=== PATIENT | male | born 1960 | race Caucasian/White ===

== ENCOUNTER 2024-02-22 08:50 | Inpatient (IN) | payer MEDICARE, SELFPAY ==
--- NOTE | ~2024-02-22 | CT_ITS ---
EXAMINATION: CT HEAD WITHOUT CONTRAST CLINICAL INFORMATION: Fall. Pain. COMPARISON: Previous head CT from 2008 TECHNIQUE: Contiguous axial imaging was performed from the skull base to vertex without intravenous administration of contrast. This CT examination was performed using dose optimization techniques as appropriate, variously including the following: *Automated exposure control *Adjustment of mA and/or kV according to patient size (this includes techniques or standardized protocols for targeted exams where dose is matched to indication/reason for exam; i.e. extremities or head) *Use of iterative reconstruction technique DLP: 822 mGy-cm FINDINGS: There is no extra-axial collection. There is no evidence of intra or extra-axial hemorrhage. The ventricles and extra-axial CSF spaces are slightly prominent suggestive of mild generalized atrophy. There is nonspecific periventricular white matter disease. No mass, mass effect or infarct. No skull fracture. Visualized sinuses mastoid air cells and middle ears are clear. There is poor dentition. CT/CT head/brain wo IV con IMPRESSION: No acute findings.
--- NOTE | ~2024-02-22 | XR_ITS ---
EXAMINATION: XR HIP, RIGHT CLINICAL INFORMATION: Right-sided pain COMPARISON: None available. TECHNIQUE: Two views of the right hip. FINDINGS: No fracture, dislocation or destructive process. Contrast is seen within the bladder. Patient had a CT abdomen and pelvis earlier today. XR/XR hip RT w [id number] IMPRESSION: Intact right hip.
--- NOTE | ~2024-02-22 | CT_ITS ---
Indication: Infection to upper back and scan EXAMINATION: Contrast enhanced CT of the chest abdomen pelvis. 85 mL Omnipaque 350. This CT examination was performed using dose optimization techniques as appropriate, variously including the following: *Automated exposure control *Adjustment of mA and/or kV according to patient size (this includes techniques or standardized protocols for targeted exams where dose is matched to indication/reason for exam; i.e. extremities or head) *Use of iterative reconstruction technique. Radiation dose is 633 Axial imaging with coronal and sagittal reformatted images. There are no previous studies to compare. CT chest; The the thoracic inlet is felt to be within normal limits. The axillary regions are unremarkable. Centrally there is no bulky adenopathy. Some coronary calcification is seen. The hilar regions are felt to be unremarkable. Imaging the lung vasquez. Right lung; Mild right lower lobe atelectasis. Dense 4 mm right upper lung nodule on image 165 likely represents a calcified granuloma. Some scattered areas of micronodular nodularity are noted. Scarring versus atelectasis anterior right upper lung. Other small calcified granulomas are noted. Some bronchial thickening is seen here. Left lung; Reticular nodular change in left upper lung anterior may be small or infiltrate. Small 3 mm nodule is seen on image 226 Mild basilar atelectasis. Bronchial thickening. Partially visualized abnormality involving the subcutaneous tissues centrally into the left of midline in the upper thoracic region. There is soft tissue change asymmetric to the contralateral side with surrounding stranding. Areas most significant on the topmost cut. Recommend CT superior to this to determine the extent of this abnormality. This may well be inflammatory. Malignancy of course could not be excluded. Upper abdomen; This exam is limited as there is artifact from the patient's extremities in the field. Heterogeneous appearance the liver is likely due to artifact. There is no defined lesion here.. The liver is mildly corrugated in appearance. Cirrhosis cannot be excluded. The spleen is within normal limits. The pancreas is unremarkable. Gallstone in the gallbladder is noted. The adrenal glands are unremarkable. The kidneys are in the early nephrographic phase. Again artifact limits evaluation. No gross finding. Bladder is within normal limits. The bowel pattern is felt to be nonobstructing. There is diverticular disease but no evidence for diverticulitis. The abdominal wall is felt to be intact. The appendix is within normal limits There is no bulky adenopathy in the abdomen pelvis. Some mildly prominent nodes in the portal region may be reactive. The vascular structures are intact. Minimal atherosclerotic changes. Review of the bone windows does not demonstrate suspicion for a bony lesion. CT/CT abdomen pelvis w IV con IMPRESSION: As described above chest exam only partially visualizes abnormality within the subcutaneous fat adjacent to the musculature of the midline to the left upper chest/lower neck region. I would recommend CT more superior to fully define the abnormality. Areas of conglomerate soft tissue change with soft tissue stranding. No air bubbles are identified.. Findings may well suggest an inflammatory and/or infectious etiology however underlying malignancy cannot be excluded correlation needs to be made clinically. Other findings are as described above some areas of atelectasis or reticular nodular change in the lungs which may be inflammatory. Some isolated small nodules are noted. Attention to follow-up per Fleischner criteria. No acute finding in the abdomen pelvis. Limitation from artifact
--- NOTE | ~2024-02-22 | CT_ITS ---
EXAMINATION: CT CERVICAL SPINE WITHOUT CONTRAST CLINICAL INFORMATION: Fall. Pain. COMPARISON: None available. TECHNIQUE: Axial images through the cervical spine without contrast. Sagittal and coronal reconstructions. This CT examination was performed using dose optimization techniques as appropriate, variously including the following: *Automated exposure control *Adjustment of mA and/or kV according to patient size (this includes techniques or standardized protocols for targeted exams where dose is matched to indication/reason for exam; i.e. extremities or head) *Use of iterative reconstruction technique DLP: 656 mGy-cm FINDINGS: Bone alignment is normal. No fracture or dislocation. Multilevel degenerative spondylosis and degenerative disc disease. Bilateral facet arthritis, right greater than left. Degenerative changes at the C1 dens articulation. Prevertebral soft tissues are normal. Lung apices are clear. CT/CT cervical spine wo IV con IMPRESSION: Degenerative changes. No fracture or dislocation. Fleischner guidelines were followed.
[2024-02-22 08:55] VITALS: BP 146/81; PULSE 105; RESP 18; TEMP 36.6; O2SAT 94; BMI 37.1
--- NOTE | 2024-02-22 09:06 | ED_ITS ---
HPI - General Adult General Chief complaint: Skin/Abscess/Foreign Body Stated complaint: Lump L shoulder Time Seen by Provider: 02/22/24 09:05 Source: patient and family (patient's ) Mode of arrival: ambulatory Limitations: no limitations History of Present Illness ED Provider: Genna Landon PA-C HPI narrative: 63-year-old male presents for evaluation of a lump on is left shoulder. He noticed a pimple on the back of his left shoulder about 10 days ago that he popped but it has been recurring and worsening since then. He states that the area has been continuously draining for several days and has become red and painful. His has been dressing it with triple antibiotic ointment and gauze without relief. Endorses feeling like may have had some fevers but has not taken his temperature. He denies chills, states he is sweaty at baseline. He also states that a few days after he noticed the pimple he started having a loss of appetite with some associated dry heaving and intermittent crampy RLQ abdominal pain, denies nausea. States the only thing he has had to eat in the last week is a Boost protein shake. Drinking plenty of fluids. Last bowel movement was about a week ago. MD complaint: R shoulder cellulitis Onset (ago): day(s) () Location: back Relieving factors: none Exacerbating factors: none Associated symptoms: fever/chills (subjective), loss of appetite and nausea/vomiting Treatments prior to arrival: other (antibiotic ointment) Related Data Home Medications ?Medication ?Instructions ?Recorded ?Confirmed acetaminophen 500 mg tablet 500 mg PO DAILY PRN Pain 02/22/24 02/22/24 diphenhydramine HCl 25 mg tablet 25 mg PO BEDTIME PRN itch/sleep 02/22/24 02/22/24 (Benadryl Allergy) famotidine 20 mg tablet 20 mg PO DAILY PRN Acid Reflux 02/22/24 02/22/24 ibuprofen 200 mg tablet 200 mg PO TIDAC 02/22/24 02/22/24 Allergies Allergy/AdvReac Type Severity Reaction Status Date / Time No Known Allergies Allergy Verified 02/22/24 09:00 Review of Systems 2 Constitutional: Constitutional: Reports no additional constitutional complaints, Denies chills, Reports fever(s) (subjective), Denies night sweats and Reports weight loss (due to lack of appetite) Eyes: Eyes: Reports no additional eye complaints, Denies blurry vision, Denies change in vision, Denies diplopia, Denies eye discharge, Denies loss of vision and Denies eye pain ENT: Denies dizziness Cardiovascular: Cardiovascular: Reports no additional cardiovascular complaints, Denies chest pain, Denies lightheadedness, Denies Loss of Consciousness and Denies dyspnea Respiratory: Respiratory: Reports no additional respiratory complaints and Denies dyspnea Gastrointestinal: Gastrointestinal: Reports no additional gastrointestinal complaints, Reports abdominal pain (intermittent, crampy, right lower abdomen), Denies melena, Denies hematochezia, Reports change in bowel habits (last bowel movement about a week ago (in setting of little/no intake)), Denies change in stool character, Reports nausea and Reports vomiting (dry heaving) Genitourinary: Genitourinary: Reports no additional male genitourinary complaints, Denies hematuria, Denies oliguria, Denies difficulty urinating, Denies dysuria, Denies urinary frequency, Denies urinary hesitancy, Denies urinary incontinence and Denies urinary urgency Musculoskeletal: Musculoskeletal: Reports no additional musculoskeletal complaints, Denies numbness and Denies tingling Integumentary/Breasts: Skin/Breast: Reports as per HPI Neurologic: Denies dizziness, Denies loss of vision, Denies numbness and Denies tingling Psychiatric: Psychiatric: Reports no additional psychiatric complaints Endocrine: Endocrine: Reports no additional endocrine complaints Hematologic/Lymphatic: Hematologic/Lymphatic: Reports no additional hematologic/lymphatic complaints Allergic/Immunologic: Allergic/Immunologic: Reports no additional allergic/immunologic complaints REPLACED BY [facility] Past Medical History Attestation statement: The following information was validated with the patient. (all information was validated with the patient's ) Source: old records reviewed, obtained from family (patient's provided additional history and confirmed the history provided by the patient) and nursing notes reviewed Medical History (Updated 02/22/24 @ 16:43 by FILI Wagner) Hypertension Family History Family History (Updated 02/22/24 @ 16:35 by FILI Ibanez) Father Diabetes Social History Social History Alcohol intake: current Alcohol intake frequency: holidays/special occasions only Smoked in Last 30 Days: No Use of substances other than those prescribed or required for medical reasons: No Any prior treatment program specific to substance use: No Advance Directives: No Advance Directives Information Provided: Yes Do you have a plan to hurt others: No Plan Physical Exam ED Vital Signs: Vital Signs - 24 hr 02/22/24 08:55 02/22/24 13:31 02/22/24 15:09 Temperature 98 F 98.7 F Pulse Rate 105 H 100 70 Respiratory Rate 18 21 H 15 Blood Pressure 146/81 H 154/88 H 130/60 Pulse Oximetry 94 99 Oxygen Delivery Method Room Air Room Air Room Air BMI result Body Mass Index 37.1 Const General: cooperative, no acute distress, alert and awake Nutritional Appearance: well nourished Orientation/consciousness: patient oriented x3 Limitations: no limitations HENMT Head: Yes normal to inspection and Yes atraumatic Ears: hearing grossly normal bilaterally and external ears normal General nose exam: Normal external nose present, no nasal discharge noted and no epistaxis Face and sinus: Yes normal facial exam, No abrasion and No laceration Mouth: Normal oral and palatal mucosa present, no drooling and no muffled voice Eyes General: appearance normal, both eyes and all related structures Periorbital: periorbital findings normal Eyelids: Yes eyelids normal Conjunctivae: conjunctivae normal Pupils: Equal, round and reactive pupils present EOM: EOMs intact bilaterally Neck Neck: Yes normal visual inspection, Yes full ROM and Yes no lymphadenopathy Chest Chest palpation & inspection: normal inspection of the chest Resp Effort & Inspection: normal respiratory effort and able to speak in complete sentences Auscultation: clear to auscultation bilaterally, no crackles, no rales, no rhonchi and no wheezes Cardio Rate: tachycardic Rhythm: regular rhythm Heart sounds: no click, no gallops, no murmurs and no rubs GI Inspection: Yes normal to inspection Back/Spine/Pelvis Other: Neuro General: patient oriented x3 and moves all extremities Cranial nerves: Yes Equal, round and reactive pupils present Cognition (Neuro): normal cognition Motor exam (neuro): 5/5 motor strength present throughout Sensory Exam: Normal double simultaneous stimulation for sensation Coordination: [id number] test normal Extrem General: Yes normal to inspection, Yes full ROM and Yes capillary refill normal Psych Appearance: grossly normal Mental Status: mental status grossly normal Affect: normal affect Attitude: cooperative Thought process: Normal thought process present Thought content: Normal thought content present Insight: Good insight present (Psych) Medications Administered Generic Name Dose Route Start Last Admin Trade Name Aline PRN Reason Stop Dose Admin Lactated Ringer's 1,000 mls @ 999 mls/hr 02/22/24 16:00 02/22/24 16:13 Lr IV 02/22/24 17:00 999 mls/hr .Q1H1M CEDRIC Administration Discontinued Medications Generic Name Dose Route Start Last Admin Trade Name Freq PRN Reason Stop Dose Admin Piperacillin Sod/Tazobactam 50 mls @ 100 mls/hr 02/22/24 09:51 02/22/24 11:19 Sod 3.375 gm/ Sodium Chloride IV 02/22/24 10:20 Infused ONCE ONE Infusion Sodium Chloride 1,000 mls @ 999 mls/hr 02/22/24 10:15 02/22/24 12:02 Ns IV 02/22/24 11:15 Infused .Q1H1M CEDRIC Infusion Vancomycin HCl 2,000 mg in 500 mls @ 250 mls/hr 02/22/24 12:00 02/22/24 14:45 Vancomycin/Ns IV 02/22/24 13:59 Infused ONCE ONE Infusion Insulin Human Regular 5 unit 02/22/24 15:46 02/22/24 16:12 Insulin Regular, Human 100 Unit/Ml 10 Ml Vial IVPUSH 02/22/24 15:47 5 unit ONCE ONE Administration Iohexol 85 ml 02/22/24 11:37 02/22/24 11:38 Iohexol 350 Mg/Ml 75 Ml Infus..Btl IV 02/22/24 11:38 85 ml ONCE ONE Administration Medical Decision Making Medical Decision Making MDM Narrative: Patient is a 63 year old assigned male at with no reported medical history presenting to the emergency department today with an upper back lesion. Patient's physical exam was as noted in the physical exam portion of this note. Patient's blood work showed an elevated WBC count of 14.3, an ESR of 83, a sodium of 129 (corrected is 133), an anion gap of 19, glucose of 360, CRP of 47.42, beta-hydroxybutyrate of 4.33, and an albumin of 2.8. Patient's CT chest and abdominal/pelvis showed evidence of a soft tissue infection in the upper back but no gas or other acute process. While in the department, the patient ambulated to the bathroom without incident. While in the bathroom, the patient fell and called for help. Patient denied any head strike or loss of conciousness with the incident but did cite right hip pain. I ordered a CT of the head and c- spine however, given the patient received IV contrast recently, we have to wait until it has been 6 hours to not have an interference in the reading of the CT head and c-spine. Patient's right hip and pelvis x-ray was negative. Patient's clinical presentation is not consistent with sepsis (@1524). Patient's clinical presentation is most consistent with new onset DM and an upper back subcutaneous infection vs. abscess vs. cellulitis. I spoke with the hospitalist team who agreed to admission but requested I consult with general surgery. I consulted with Dr. Mata who stated he was aware of the patient and to admit to medicine. Patient received IV Zosyn, IV Vancomycin, IV insulin, and 2 liters of fluid while in the department. I explained my physical exam findings as well as all test results to the patient and the patient's . I answered all questions asked by the patient and the patient's . Patient and the patient's verbalized agreement and understanding with this treatment plan and admission. Differential Diagnosis Differential Diagnoses: The differential diagnosis associated with the presentation includes Cellulitis Abscess Rash New onset DM Admission/Observation Consideration of admission/observation: Escalation of care including admission/observation considered Patient would have been admitted to the hospital had his work up had any findings where hospital admission was appropriate and his clinical presentation warranted hospital admission. Consult Healthcare Provider Management of the patient was discussed with: Hospitalist (agreed to admission as noted in the MDM Rationale portion of this note.) and Talent Development Coordinator (spoke to the surgeon as noted in the MDM Rationale portion of this note.) Lab Data [facility] Lab Attestation statement: I reviewed the patient's lab results. My interpretation of these results are in the MDM Rationale portion of this note. 02/22/24 10:17 02/22/24 10:59 Labs: Lab Results 02/22/24 02/22/24 02/22/24 Range/Units 10:17 10:59 12:34 WBC 14.3 H (4.8-10.8) X10*3/uL RBC 4.31 L (4.60-5.80) X10*6/uL Hgb 13.9 L (14.0-18.0) g/dl Hct 38.9 L (42.0-52.0) % MCV 90.3 (80.0-98.0) fL MCH 32.3 (27.0-33.0) pg MCHC 35.7 (31.0-36.0) g/dl RDW 12.2 (11.0-16.0) % Plt Count 262 (160-400) X10*3/uL MPV 9.8 (9.4-12.4) fL Immature Gran % (Auto) 1.3 H (0.0-0.4) % Neut % (Auto) 79.0 H (45-73) % Lymph % (Auto) 9.8 L (20-40) % Vigo % (Auto) 8.7 (2-11) % Eos % (Auto) 0.6 (0-4) % Baso % (Auto) 0.6 (0-2) % Lymph # (Auto) 1.4 (1.2-4.9) X10*3/uL Vigo # (Auto) 1.3 H (0.1-1.2) X10*3/uL Eos # (Auto) 0.1 (0.0-0.4) X10*3/uL Baso # (Auto) 0.1 (0.0-0.2) X10*3/uL Abs Immat Gran (auto) 0.18 H (0.00-0.03) X10*3/uL Absolute Neuts (auto) 11.3 H (2.0-8.3) x10*3/uL Absolute Nucleated RBC 0.000 (0.0-0.012) X10*3/uL Nucleated RBC % (auto) 0.0 (0.0-0.2) /100WBC ESR 83 H (0-15) MM/HR Sodium 129 L (135-145) mmol/L Potassium 3.7 (3.3-5.1) mmol/L Chloride 95 L (96-108) mmol/L Carbon Dioxide 19 L (22-29) mmol/L Anion Gap 19 (12-20) BUN 16 (9-16) mg/dL Creatinine 1.02 (0.5-1.4) mg/dL Estim Creat Clear Calc 98.2 Estimated GFR > 60 POC Glucose (60-115) mg/dL Random Glucose 360 H* (60-115) mg/dL Estimat Average Glucose Cancelled Hemoglobin A1c % Cancelled Lactic Acid 2.3 H* (0.5-2.0) mmol/L Lactic Acid F/U @ 2Hr 1.1 (0.5-2.0) mmol/L Calcium 9.2 (8.4-10.2) mg/dL Total Bilirubin 0.6 (0.0-1.0) mg/dL AST 24 (5-37) U/L ALT 27 (0-40) U/L Alkaline Phosphatase 99 (39-117) U/L C-Reactive Protein 47.42 H (< or = 0.50) mg/dL Total Protein 7.2 (6.5-8.0) g/dL Albumin 2.8 L (3.5-5.0) g/dL Beta-Hydroxybutyrate 4.33 H (0.02-0.27) mmol/L 02/22/24 Range/Units 15:44 WBC (4.8-10.8) X10*3/uL RBC (4.60-5.80) X10*6/uL Hgb (14.0-18.0) g/dl Hct (42.0-52.0) % MCV (80.0-98.0) fL MCH (27.0-33.0) pg MCHC (31.0-36.0) g/dl RDW (11.0-16.0) % Plt Count (160-400) X10*3/uL MPV (9.4-12.4) fL Immature Gran % (Auto) (0.0-0.4) % Neut % (Auto) (45-73) % Lymph % (Auto) (20-40) % Vigo % (Auto) (2-11) % Eos % (Auto) (0-4) % Baso % (Auto) (0-2) % Lymph # (Auto) (1.2-4.9) X10*3/uL Vigo # (Auto) (0.1-1.2) X10*3/uL Eos # (Auto) (0.0-0.4) X10*3/uL Baso # (Auto) (0.0-0.2) X10*3/uL Abs Immat Gran (auto) (0.00-0.03) X10*3/uL Absolute Neuts (auto) (2.0-8.3) x10*3/uL Absolute Nucleated RBC (0.0-0.012) X10*3/uL Nucleated RBC % (auto) (0.0-0.2) /100WBC ESR (0-15) MM/HR Sodium (135-145) mmol/L Potassium (3.3-5.1) mmol/L Chloride (96-108) mmol/L Carbon Dioxide (22-29) mmol/L Anion Gap (12-20) BUN (9-16) mg/dL Creatinine (0.5-1.4) mg/dL Estim Creat Clear Calc Estimated GFR POC Glucose 317 H (60-115) mg/dL Random Glucose (60-115) mg/dL Estimat Average Glucose Hemoglobin A1c % Lactic Acid (0.5-2.0) mmol/L Lactic Acid F/U @ 2Hr (0.5-2.0) mmol/L Calcium (8.4-10.2) mg/dL Total Bilirubin (0.0-1.0) mg/dL AST (5-37) U/L ALT (0-40) U/L Alkaline Phosphatase (39-117) U/L C-Reactive Protein (< or = 0.50) mg/dL Total Protein (6.5-8.0) g/dL Albumin (3.5-5.0) g/dL Beta-Hydroxybutyrate (0.02-0.27) mmol/L Independent Interpretation I performed an independent interpretation of an: Plain X-Ray Interpretation: My interpretation is in agreement with the radiologist's impression of these imaging studies. - EXAMINATION: Contrast enhanced CT of the chest abdomen pelvis. 85 mL Omnipaque 350. This CT examination was performed using dose optimization techniques as appropriate, variously including the following: *Automated exposure control *Adjustment of mA and/or kV according to patient size (this includes techniques or standardized protocols for targeted exams where dose is matched to indication/reason for exam; i.e. extremities or head) *Use of iterative reconstruction technique. Radiation dose is 633 Axial imaging with coronal and sagittal reformatted images. There are no previous studies to compare. CT chest; The the thoracic inlet is felt to be within normal limits. The axillary regions are unremarkable. Centrally there is no bulky adenopathy. Some coronary calcification is seen. The hilar regions are felt to be unremarkable. Imaging the lung vasquez. Right lung; Mild right lower lobe atelectasis. Dense 4 mm right upper lung nodule on image 165 likely represents a calcified granuloma. Some scattered areas of micronodular nodularity are noted. Scarring versus atelectasis anterior right upper lung. Other small calcified granulomas are noted. Some bronchial thickening is seen here. Left lung; Reticular nodular change in left upper lung anterior may be small or infiltrate. Small 3 mm nodule is seen on image 226 Mild basilar atelectasis. Bronchial thickening. Partially visualized abnormality involving the subcutaneous tissues centrally into the left of midline in the upper thoracic region. There is soft tissue change asymmetric to the contralateral side with surrounding stranding. Areas most significant on the topmost cut. Recommend CT superior to this to determine the extent of this abnormality. This may well be inflammatory. Malignancy of course could not be excluded. Upper abdomen; This exam is limited as there is artifact from the patient's extremities in the field. Heterogeneous appearance the liver is likely due to artifact. There is no defined lesion here.. The liver is mildly corrugated in appearance. Cirrhosis cannot be excluded. The spleen is within normal limits. The pancreas is unremarkable. Gallstone in the gallbladder is noted. The adrenal glands are unremarkable. The kidneys are in the early nephrographic phase. Again artifact limits evaluation. No gross finding. Bladder is within normal limits. The bowel pattern is felt to be nonobstructing. There is diverticular disease but no evidence for diverticulitis. The abdominal wall is felt to be intact. The appendix is within normal limits There is no bulky adenopathy in the abdomen pelvis. Some mildly prominent nodes in the portal region may be reactive. The vascular structures are intact. Minimal atherosclerotic changes. Review of the bone windows does not demonstrate suspicion for a bony lesion. CT/CT abdomen pelvis w IV con IMPRESSION: As described above chest exam only partially visualizes abnormality within the subcutaneous fat adjacent to the musculature of the midline to the left upper chest/lower neck region. I would recommend CT more superior to fully define the abnormality. Areas of conglomerate soft tissue change with soft tissue stranding. No air bubbles are identified.. Findings may well suggest an inflammatory and/or infectious etiology however underlying malignancy cannot be excluded correlation needs to be made clinically. Other findings are as described above some areas of atelectasis or reticular nodular change in the lungs which may be inflammatory. Some isolated small nodules are noted. Attention to follow-up per Fleischner criteria. No acute finding in the abdomen pelvis. Limitation from artifact Dictated By: Magdy Whitlock MD Signed By: Electronically signed by Magdy Whitlock MD 02/22/24 1509 - EXAMINATION: XR HIP, RIGHT CLINICAL INFORMATION: Right-sided pain COMPARISON: None available. TECHNIQUE: Two views of the right hip. FINDINGS: No fracture, dislocation or destructive process. Contrast is seen within the bladder. Patient had a CT abdomen and pelvis earlier today. XR/XR hip RT w [id number] IMPRESSION: Intact right hip. Dictated By: Bernardo Hinton MD Signed By: Electronically signed by Bernardo Hinton MD 02/22/24 1447 Radiology Impression Discussion of test interpretation with radiology: I have reviewed the radiologist's reading. Independent Historian Clinical information obtained from an independent historian. History obtained from or confirmed by: Spouse (patient's provided additional history and confirmed the history provided by the patient.) Critical Care Time Critical Care Time Critical Care Time: Yes Total Critical Care Time: 48 Attestation: I spent 48 minutes of Critical Care Time with this patient. This does not include time spent on separately reported billable procedures. Discharge Plan Discharge Clinical Impression: Cellulitis, Abscess, Diabetes mellitus, new onset, Acute hyperglycemia Patient Disposition: Admitted As Inpatient Prescriptions: No Action acetaminophen [Tylenol Ex Str Arthritis Pain] 500 mg Tablet 500 mg PO DAILY PRN (Reason: Pain) famotidine 20 mg Tablet 20 mg PO DAILY PRN (Reason: Acid Reflux) diphenhydramine HCl [Benadryl Allergy] 25 mg Tablet 25 mg PO BEDTIME PRN (Reason: itch/sleep) ibuprofen 200 mg Tablet 200 mg PO TIDAC Print Language: Yoruba
[2024-02-22 10:24] LABS: MANUAL DIFF FLAG NO
[2024-02-22 10:30] LABS: Basophils Absolute Auto 0.1 X10*3/uL (0.0-0.2); Basophils Percent Auto 0.6 % (0-2); Eosinophils Absolute Auto 0.1 X10*3/uL (0.0-0.4); Eosinophils Percent Auto 0.6 % (0-4); Hematocrit 38.9 % (42.0-52.0); Hemoglobin 13.9 g/dl (14.0-18.0); Imm Gran Abs Auto 0.18 X10*3/uL (0.00-0.03); Imm Gran Pct Auto 1.3 % (0.0-0.4); Lymphocytes Absolute Auto 1.4 X10*3/uL (1.2-4.9); Lymphocytes Percent Auto 9.8 % (20-40); Mean Corpuscular HGB Conc 35.7 g/dl (31.0-36.0); Mean Corpuscular Hemoglobin 32.3 pg (27.0-33.0); Mean Corpuscular Volume 90.3 fL (80.0-98.0); Mean Platelet Volume 9.8 fL (9.4-12.4); Monocytes Absolute Auto 1.3 X10*3/uL (0.1-1.2); Monocytes Percent Auto 8.7 % (2-11); Neutrophils Absolute Auto 11.3 x10*3/uL (2.0-8.3); Platelet Count 262 X10*3/uL (160-400); Red Blood Count 4.31 X10*6/uL (4.60-5.80); Red Cell Distribution Width 12.2 % (11.0-16.0); White Blood Count 14.3 X10*3/uL (4.8-10.8)
[2024-02-22] MEDS: Piperacillin Sodium/Tazobactam 3.375 GM in 0.9 % Sodium Chloride 50 ML IV ×3 (10:33→21:52)
[2024-02-22] MEDS: 0.9 % Sodium Chloride 1,000 ML 999 ML IV (10:33)
[2024-02-22 10:53] LABS: Lactic Acid 2.3 mmol/L (0.5-2.0)
[2024-02-22 11:03] LABS: Erythrocyte Sedimentation Rate 83 MM/HR (0-15)
[2024-02-22 11:22] LABS: Alanine Aminotransferase 27 U/L (0-40); Albumin Level 2.8 g/dL (3.5-5.0); Alkaline Phosphatase 99 U/L (39-117); Anion Gap 19 (12-20); Aspartate Amino Transferase 24 U/L (5-37); Bilirubin Total 0.6 mg/dL (0.0-1.0); Blood Urea Nitrogen 16 mg/dL (9-16); C Reactive Protein 47.42 mg/dL (< or = 0.50); Calcium 9.2 mg/dL (8.4-10.2); Carbon Dioxide 19 mmol/L (22-29); Chloride 95 mmol/L (96-108); Creatinine Clr Calc Pharmacy 98.2; Estimated Glomerular Filt Rate > 60; Glucose Random 360 mg/dL (60-115); Potassium 3.7 mmol/L (3.3-5.1); Sodium 129 mmol/L (135-145); Total Protein 7.2 g/dL (6.5-8.0)
[2024-02-22] MEDS: iohexoL 350 MG/ML 75 ML INFUS..BTL 85 ML IV (11:38)
[2024-02-22] MEDS: vancomycin/NS 2,000 MG/500 ML PLAST..BAG 250 MG IV (12:02)
[2024-02-22 12:08] LABS: Beta-Hydroxybutyrate 4.33 mmol/L (0.02-0.27)
[2024-02-22 12:23] LABS: Reflex Lactate? Lactic Acid Added
[2024-02-22 12:48] LABS: ~Lactic Acid-LAB USE ONLY 1.1 mmol/L (0.5-2.0)
[2024-02-22 13:31] VITALS: BP 154/88; PULSE 100; RESP 21; O2SAT 99
--- NOTE | 2024-02-22 13:31 | PC.NURSE ---
assumed care of pt at 1300 pt requested to go to the restroom, disconnected from IV, pt assisted to standing, shoes in place, ambulated independently w a slow steady gait to the restroom. pt heard calling for help from the bathroom, security called to unlock door. pt found lying on floor, sat up into sitting position, endorsing R hip pain, -ve head strike, unwitnessed, provider aware. pt assisted into wheel chair and back into bed, reporting improvement in hip pain after getting off hard concrete. pt reports that he stood up from the toilet and tripped and fell onto my right side. post fall vitals: hypertensive, otherwise WNL. Initialized on 02/22/24 13:31 - END OF NOTE
--- NOTE | 2024-02-22 13:31 | PC.NURSE ---
Addendum entered by Aubrey Quigley 02/22/24 15:16: assumed care of pt at 1500. Original Note: pt requested to go to the restroom, disconnected from IV, pt assisted to standing, shoes in place, ambulated independently w a slow steady gait to the restroom. pt heard calling for help from the bathroom, security called to unlock door. pt found lying on floor, sat up into sitting position, endorsing R hip pain, -ve head strike, unwitnessed, provider aware. pt assisted into wheel chair and back into bed, reporting improvement in hip pain after getting off hard concrete. pt reports that he stood up from the toilet and tripped and fell onto my right side. post fall vitals: hypertensive, otherwise WNL.
[2024-02-22 15:09] VITALS: BP 130/60; PULSE 70; RESP 15; TEMP 37.1
--- NOTE | 2024-02-22 15:46 | PHA.MEDREC ---
Pharmacy Consult ? Medication Reconciliation Pharmacy has completed the medication reconciliation. Completed medication lest with patient. Patient mostly taking OTC meds, he takes Ibuprofen 200mg typically TID before meals but due to him not eating recently he hasn't taken it in about 2-3 days per patient.
[2024-02-22 15:48] LABS: Glucose, Whole Blood 317 mg/dL (60-115)
[2024-02-22] MEDS: Insulin Regular, Human 100 UNIT/ML 10 ML VIAL IVPUSH (16:12)
[2024-02-22] MEDS: Lactated Ringers 1,000 ML 999 ML IV (16:13)
--- NOTE | 2024-02-22 16:28 | PM.IMHP ---
History of Present Illness Date of Service: 02/22/24 Attending physician on admission: Florencio Arndt Chief Complaint: back abscess This is a 63-year-old male who presents to the emergency department with complaints of left back abscess. He states approximately 10 days ago he noticed a pimple which she has popped multiple times. This area has continued to grow considerably and has been actively draining for the past 2 days. It has become red and painful and today he presented to the emergency department for evaluation of this area. He reports decreased p.o. intake for the past 4 days but denies excessive thirst or associated fever or chills. On evaluation he was afebrile, lab work was significant for leukocytosis of 14.3. Inflammatory markers including ESR and CRP were significantly elevated. In addition he was noted to have hyperglycemia. He denies any previous diagnosis of diabetes. He has not seen any medical provider in at least the past 4-5 years. Lactic acid was slightly elevated at 2.1, bicarb low 19 but no evidence of DKA, no anion gap. Imaging studies partially visualized abnormality in the subcutaneous fat adjacent to the musculature in the lower neck region suggestive of inflammatory and/or infectious etiology. He received broad-spectrum antibiotics and the decision was made to admit him to the hospital for further management. While he was in the emergency department he did have a mechanical fall. He did not lose consciousness and he denies hitting his head. He denies any headache, visual disturbances or neck pain. A right hip x-ray was obtained and was negative for any fracture. He denies any pain right hip or pelvis. Review of Systems Review of Systems: Yes all other systems are reviewed and are negative Constitutional: Constitutional: Denies chills and Denies fever(s) ENT: Denies dizziness Cardiovascular: Cardiovascular: Denies chest pain Neurologic: Denies dizziness [facility] Medical History (Updated 02/22/24 @ 16:43 by FILI Wagner) Hypertension Family History (Updated 02/22/24 @ 16:35 by FILI Ibanez) Father Diabetes Social History Alcohol intake: current Alcohol intake frequency: holidays/special occasions only Smoked in Last 30 Days: No Use of substances other than those prescribed or required for medical reasons: No Any prior treatment program specific to substance use: No Advance Directives: No Advance Directives Information Provided: Yes Do you have a plan to hurt others: No Plan Meds Allergies Allergy/AdvReac Type Severity Reaction Status Date / Time No Known Allergies Allergy Verified 02/22/24 09:00 Active Medications: Current Medications Lactated Ringer's (Lr) 1,000 mls @ 999 mls/hr IV .Q1H1M CEDRIC Stop: 02/22/24 17:00 Last Admin: 02/22/24 16:13 Dose: 999 mls/hr Home Medications ?Medication ?Instructions ?Recorded ?Confirmed ?Last Taken ?Type acetaminophen 500 mg tablet 500 mg PO DAILY PRN Pain 02/22/24 02/22/24 Unknown History diphenhydramine HCl 25 mg tablet 25 mg PO BEDTIME PRN itch/sleep 02/22/24 02/22/24 Unknown History (Benadryl Allergy) famotidine 20 mg tablet 20 mg PO DAILY PRN Acid Reflux 02/22/24 02/22/24 Unknown History ibuprofen 200 mg tablet 200 mg PO TIDAC 02/22/24 02/22/24 02/20/24 History Physical Exam Vital Signs and Narrative: Vital Signs: Last Vital Signs Temp 98.7 F 02/22/24 15:09 Pulse 70 02/22/24 15:09 Resp 15 02/22/24 15:09 BP 130/60 02/22/24 15:09 Pulse Ox 99 02/22/24 13:31 O2 Del Method Room Air 02/22/24 15:09 BMI result Body Mass Index 37.1 Const: General: cooperative, no acute distress, alert and awake Nutritional Appearance: obese Orientation/consciousness: patient oriented x3 Resp: Effort & Inspection: normal respiratory effort, able to speak in complete sentences, no respiratory distress and no use of accessory muscles Cardio: Rate: regular rate GI: Inspection: No distended and Yes obesity Palpation (GI): Soft to palpation and nontender Skin: Other: back abscess with large area of cellulitis/erythema, tender, with purulent drainage Neuro: General: patient oriented x3, moves all extremities and CN's II-XI intact bilaterally Results Labs 02/22/24 10:17 02/22/24 10:59 Labs: Laboratory Results - last 24 hr 02/22/24 02/22/24 02/22/24 10:17 10:59 12:34 MCV 90.3 MCH 32.3 MCHC 35.7 RDW 12.2 Plt Count 262 MPV 9.8 Immature Gran % (Auto) 1.3 H Neut % (Auto) 79.0 H Lymph % (Auto) 9.8 L [place] % (Auto) 8.7 Eos % (Auto) 0.6 Baso % (Auto) 0.6 Lymph # (Auto) 1.4 [place] # (Auto) 1.3 H Eos # (Auto) 0.1 Baso # (Auto) 0.1 Abs Immat Gran (auto) 0.18 H Absolute Neuts (auto) 11.3 H Absolute Nucleated RBC 0.000 Nucleated RBC % (auto) 0.0 ESR 83 H Anion Gap 19 Estim Creat Clear Calc 98.2 Estimated GFR > 60 POC Glucose Random Glucose 360 H* Estimat Average Glucose Cancelled Hemoglobin A1c % Cancelled Lactic Acid 2.3 H* Lactic Acid F/U @ 2Hr 1.1 Calcium 9.2 Total Bilirubin 0.6 AST 24 ALT 27 Alkaline Phosphatase 99 C-Reactive Protein 47.42 H Total Protein 7.2 Albumin 2.8 L Beta-Hydroxybutyrate 4.33 H 02/22/24 15:44 MCV MCH MCHC RDW Plt Count MPV Immature Gran % (Auto) Neut % (Auto) Lymph % (Auto) [place] % (Auto) Eos % (Auto) Baso % (Auto) Lymph # (Auto) [place] # (Auto) Eos # (Auto) Baso # (Auto) Abs Immat Gran (auto) Absolute Neuts (auto) Absolute Nucleated RBC Nucleated RBC % (auto) ESR Anion Gap Estim Creat Clear Calc Estimated GFR POC Glucose 317 H Random Glucose Estimat Average Glucose Hemoglobin A1c % Lactic Acid Lactic Acid F/U @ 2Hr Calcium Total Bilirubin AST ALT Alkaline Phosphatase C-Reactive Protein Total Protein Albumin Beta-Hydroxybutyrate Imaging Radiologist's Impressions: Impressions Abdomen/Pelvis CT 02/22/24 11:36 IMPRESSION: As described above chest exam only partially visualizes abnormality within the subcutaneous fat adjacent to the musculature of the midline to the left upper chest/lower neck region. I would recommend CT more superior to fully define the abnormality. Areas of conglomerate soft tissue change with soft tissue stranding. No air bubbles are identified.. Findings may well suggest an inflammatory and/or infectious etiology however underlying malignancy cannot be excluded correlation needs to be made clinically. Other findings are as described above some areas of atelectasis or reticular nodular change in the lungs which may be inflammatory. Some isolated small nodules are noted. Attention to follow-up per Fleischner criteria. No acute finding in the abdomen pelvis. Limitation from artifact Chest CT 02/22/24 11:36 IMPRESSION: As described above chest exam only partially visualizes abnormality within the subcutaneous fat adjacent to the musculature of the midline to the left upper chest/lower neck region. I would recommend CT more superior to fully define the abnormality. Areas of conglomerate soft tissue change with soft tissue stranding. No air bubbles are identified.. Findings may well suggest an inflammatory and/or infectious etiology however underlying malignancy cannot be excluded correlation needs to be made clinically. Other findings are as described above some areas of atelectasis or reticular nodular change in the lungs which may be inflammatory. Some isolated small nodules are noted. Attention to follow-up per Fleischner criteria. No acute finding in the abdomen pelvis. Limitation from artifact Hip/Pelvis X-Ray 02/22/24 14:23 IMPRESSION: Intact right hip. Assessment and Plan (1) Cellulitis and abscess of other specified site: Status: Acute (2) Diabetes mellitus with hyperglycemia: Status: Acute Plan This is a 63-year-old male with history of hypertension, noncompliant with medication who has not seen a medical provider in the past 5 years who presents with 10 day history of increasing painful red area on his back found to have abscess and new diagnosis of diabetes Sepsis due to Abscess and cellulitis of upper back Meets sepsis criteria with leukocytosis and tachycardia. Lactic acid 2.3. No severe features Blood pressure stable We will continue broad-spectrum antibiotics Surgical consult for likely I&D Follow-up blood culture results Follow inflammatory markers New onset diabetes Check hemoglobin A1c Follow with sliding scale to obtain 24 hour needs, will likely require insulin Diabetic diet metabolic acidosis likely due to elevated lactic acid no evidence of DKA Follow chemistries closely Mechanical fall Denies loss of consciousness, head strike. No neck pain Emergency room provider has ordered CT scan of head and neck, pending at this time PT evaluation HTN h/o HTN, stopped meds 4-5 years ago will hold blood pressure meds for now in the setting of infection will monitor trend closely and if remains stable will add lisinopril and titrate to effect Pseudo hyponatremia Due to hyperglycemia Normocytic anemia Above transfusion threshold Morbid obesity BMI 37.1 Weight loss encouraged dvt ppx - mechanical devices Patient will likely require 2 midnight stay for IV antibiotics, treatment of newly diagnosed diabetes and unstable blood sugar as well as surgical evaluation and probable I&D Quality Stroke Does the patient have a stroke diagnosis?: No VTE Prior VTE?: No VTE Risk Level:: Medical - moderate - high VTE Device Contraindication: N/A - Device Ordered VTE Drug Contraindication: Treatment Not Indicated
[2024-02-22 16:35] LABS: Alanine Aminotransferase 32 U/L (0-40); Albumin Level 2.9 g/dL (3.5-5.0); Alkaline Phosphatase 97 U/L (39-117); Anion Gap 17 (12-20); Aspartate Amino Transferase 30 U/L (5-37); Bilirubin Total 0.5 mg/dL (0.0-1.0); Blood Urea Nitrogen 15 mg/dL (9-16); Calcium 9.2 mg/dL (8.4-10.2); Carbon Dioxide 18 mmol/L (22-29); Chloride 98 mmol/L (96-108); Creatinine Clr Calc Pharmacy 108.9; Estimated Glomerular Filt Rate > 60; Glucose Random 341 mg/dL (60-115); Potassium 3.9 mmol/L (3.3-5.1); Sodium 129 mmol/L (135-145); Total Protein 7.1 g/dL (6.5-8.0)
[2024-02-22 16:43] LABS: Estimated Average Glucose 306 mg/dL; Hemoglobin A1c % 12.3 % (<6.0)
[2024-02-22 17:10] VITALS: BP 144/76; PULSE 97; RESP 20; TEMP 36.8; O2SAT 95
[2024-02-22 17:21] LABS: Glucose, Whole Blood 240 mg/dL (60-115)
[2024-02-22 18:27] LABS: Glucose, Whole Blood 257 mg/dL (60-115)
[2024-02-22] MEDS: Insulin Lispro 100 UNIT/ML 3 ML VIAL SUBCUT ×2 (18:34→20:19)
[2024-02-22] MEDS: Lactated Ringers 1,000 ML 100 ML IVCONT (18:40)
[2024-02-22 18:45] VITALS: BP 155/83; PULSE 94
[2024-02-22 19:29] LABS: Anion Gap 18 (12-20); Blood Urea Nitrogen 14 mg/dL (9-16); Calcium 8.9 mg/dL (8.4-10.2); Carbon Dioxide 19 mmol/L (22-29); Chloride 99 mmol/L (96-108); Creatinine Clr Calc Pharmacy 128.4; Estimated Glomerular Filt Rate > 60; Glucose Random 277 mg/dL (60-115); Potassium 3.5 mmol/L (3.3-5.1); Sodium 132 mmol/L (135-145)
[2024-02-22 19:57] LABS: Erythrocyte Sedimentation Rate 86 MM/HR (0-15)
[2024-02-22 20:00] VITALS: BP 156/82; PULSE 98; RESP 18; TEMP 36.2; O2SAT 94
[2024-02-22] MEDS: Docusate Sodium 100 MG CAPSULE PO (20:18)
[2024-02-22 20:20] VITALS: BMI 37.8
[2024-02-22 20:42] LABS: Glucose, Whole Blood 312 mg/dL (60-115)
[2024-02-22] MEDS: Nystatin Powder 15 GM BOTTLE 1 APPL TOPICAL (21:52)
[2024-02-22] MEDS: vancomycin HCL 1,250 MG in 0.9 % Sodium Chloride 250 ML 166.67 MG IV (22:19)
[2024-02-23 04:00] VITALS: BP 140/64; PULSE 85; RESP 16; TEMP 36.1; O2SAT 97
[2024-02-23] MEDS: Piperacillin Sodium/Tazobactam 3.375 GM in 0.9 % Sodium Chloride 50 ML IV ×4 (04:10→22:19)
[2024-02-23] MEDS: Lactated Ringers 1,000 ML 100 ML IVCONT (06:21)
[2024-02-23 06:44] LABS: Hematocrit 33.6 % (42.0-52.0); Hemoglobin 11.8 g/dl (14.0-18.0); Mean Corpuscular HGB Conc 35.1 g/dl (31.0-36.0); Mean Corpuscular Hemoglobin 32.2 pg (27.0-33.0); Mean Corpuscular Volume 91.8 fL (80.0-98.0); Mean Platelet Volume 10.1 fL (9.4-12.4); Platelet Count 208 X10*3/uL (160-400); Red Blood Count 3.66 X10*6/uL (4.60-5.80); Red Cell Distribution Width 12.5 % (11.0-16.0); White Blood Count 9.5 X10*3/uL (4.8-10.8)
[2024-02-23 07:09] VITALS: BP 164/76; PULSE 83; RESP 16; TEMP 36.4; O2SAT 95
[2024-02-23 07:43] LABS: Anion Gap 17 (12-20); Blood Urea Nitrogen 14 mg/dL (9-16); Calcium 8.7 mg/dL (8.4-10.2); Carbon Dioxide 18 mmol/L (22-29); Chloride 100 mmol/L (96-108); Creatinine Clr Calc Pharmacy 123.4; Estimated Glomerular Filt Rate > 60; Glucose Random 238 mg/dL (60-115); Potassium 4.3 mmol/L (3.3-5.1); Sodium 131 mmol/L (135-145)
[2024-02-23] MEDS: Docusate Sodium 100 MG CAPSULE PO ×2 (07:50→20:15)
[2024-02-23] MEDS: Insulin Lispro 100 UNIT/ML 3 ML VIAL SUBCUT ×4 (07:50→20:15)
[2024-02-23] MEDS: Nystatin Powder 15 GM BOTTLE 1 APPL TOPICAL ×2 (07:51→20:16)
--- NOTE | 2024-02-23 08:55 | P.CDIM_ITS ---
PROVIDER RESPONSE TEXT: To clarify, the appropriate diagnosis supported by the clinical indicators: Acute QUERY TEXT: PHYSICIAN'S DOCUMENTATION REQUEST Date of Query: 02/23/2024 07:38 AM EDT Patient Name: Devang Myrick Admit Date: 02/22/2024 Dear Marsha Parker, A review of the medical record indicates additional documentation may be needed. Please review below and update the documentation accordingly. Clinical Indicators: H&P: metabolic acidosis likely due to elevated lactic acid. Follow chemistries closely. Clarify which of the following accurately represents the acuity of the metabolic acidosis: Possible options might include: Acute Acute on chronic Other (explain) Clinically unable to determine (explain) Thank you, Lory Jolly, CCS, CDIS Use of terms such as suspected, likely, concern for, or probable (associated with a specific diagnosi s that is being evaluated, monitored, or treated as if it exists) are acceptable and can be coded in the inpatient se tting, when documented at the time of discharge. Please use your independent medical judgment in providing your response. THIS QUERY IS PART OF THE PERMANENT MEDICAL RECORD
[2024-02-23 08:56] LABS: Glucose, Whole Blood 231 mg/dL (60-115)
[2024-02-23] MEDS: Lidocaine HCl 1 % 20 ML VIAL INFILTRATI (09:12)
[2024-02-23] MEDS: Acetaminophen 325 MG TABLET 650 MG PO (09:53)
--- NOTE | 2024-02-23 10:36 | PM.CNGS ---
History of Present Illness Consult details Consult date: 02/23/24 Requesting physician: Marsha Parker Narrative: 63-year-old male who presented to the emergency department yesterday with complaints of left back pain and redness. Around 10 days ago, he noticed a pimple which he popped multiple times. The size continually increased and became red and painful and began to drain purulence. He therefore presented to the ED for evaluation. He denies fever, chills, nausea or vomiting. He reports this happening on time prior years ago. Lab work was significant for leukocytosis of 14.3. In addition he was noted to have hyperglycemia. He was admitted to the hospitalist service for further treatment of the left back cellulitis and hyperglycemia. He was started on IV zosyn and vanco. General surgery was consulted for evaluation of the left back cellulitis, abscess. Review of Systems Constitutional: Constitutional: Denies chills and Denies fever(s) Cardiovascular: Cardiovascular: Denies chest pain and Denies dyspnea Respiratory: Respiratory: Denies dyspnea Gastrointestinal: Gastrointestinal: Denies nausea and Denies vomiting Integumentary/Breasts: Skin/Breast: Reports as per [facility] Past Medical History Medical History (Updated 02/22/24 @ 16:43 by FILI Wagner) Hypertension Family History Family History (Updated 02/22/24 @ 16:35 by FILI Ibanez) Father Diabetes Social History Social History Household Members: Spouse Housing: House Do you presently have visiting nurse or other home services: No Alcohol intake: current Alcohol intake frequency: holidays/special occasions only Patient Tobacco Use Status: Former Tobacco user Smoked in Last 30 Days: No Use of substances other than those prescribed or required for medical reasons: No Currently Displaying Signs/Symptoms of Drug Intoxication Withdrawal: No Any prior treatment program specific to substance use: No Have you been hit, kicked, punched, or otherwise hurt by someone within the past year? If so, by whom?: No Do you feel safe in your current relationship?: Yes Is there a partner from a previous relationship who is making you feel unsafe now?: No Are you made to feel afraid or neglected: No Advance Directives: No Advance Directives Information Provided: Yes Do you have a plan to hurt others: No Plan Recently lost weight without trying: No Nutrition Risks: No Nutritional Risk Poor oral hygiene: No Meds Allergies Allergy/AdvReac Type Severity Reaction Status Date / Time No Known Allergies Allergy Verified 02/22/24 09:00 Active Medications: Current Medications Acetaminophen (Acetaminophen 325 Mg Tablet) 650 mg PO Q6H PRN PRN Reason: Pain, Mild (Pain Scale 1-3), fever or headache Last Admin: 02/23/24 09:53 Dose: 650 mg Docusate Sodium (Docusate Sodium 100 Mg Capsule) 100 mg PO BID [facility] Last Admin: 02/23/24 07:50 Dose: 100 mg Glucose (Glucose Gel 15 Gm Gel..Gram.) 15 gm PO Q15M PRN; Protocol PRN Reason: per Hypoglycemia Standing Ord. Piperacillin Sod/Tazobactam (Sod 3.375 gm/ Sodium Chloride) 50 mls @ 100 mls/hr IV Q6H [facility] Last Admin: 02/23/24 10:26 Dose: 100 mls/hr Dextrose (D10) 250 mls @ 750 mls/hr IV Q15M PRN; Protocol PRN Reason: per Hypoglycemia Standing Ord. Lactated Ringer's (Lr) 1,000 mls @ 100 mls/hr IVCONT .Q10H [facility] Last Admin: 02/23/24 06:21 Dose: 100 mls/hr Vancomycin HCl 1,250 mg/ (Sodium Chloride) 250 mls @ 166.667 mls/hr IV Q12H [facility] Last Infusion: 02/22/24 23:54 Dose: Infused Insulin Human Lispro (Insulin Lispro 100 Unit/Ml 3 Ml Vial) 0 unit SUBCUT QIDACHS [facility]; Protocol Last Admin: 02/23/24 07:50 Dose: 1 unit Melatonin (Melatonin 3 Mg Tablet) 6 mg PO BEDTIME PRN PRN Reason: Insomnia Morphine Sulfate (Morphine Sulfate 4 Mg/Ml Cartridge) 2 mg IVPUSH Q4H PRN; Protocol PRN Reason: Pain, Severe (Pain Scale 7-10) Nystatin (Nystatin Powder 15 Gm Bottle) 1 appl TOPICAL BID [facility]; Protocol Last Admin: 02/23/24 07:51 Dose: 1 appl Ondansetron HCl (Ondansetron Hcl 4 Mg/2 Ml Vial) 4 mg IVPUSH Q8H PRN PRN Reason: Nausea and Vomiting Oxycodone HCl (Oxycodone Hcl Immed Release 5 Mg Tablet) 5 mg PO Q6H PRN PRN Reason: Pain, Moderate(Pain Scale 4-6) Pharmacy Consult (Consult Rx Vancomycin Dosing) 1 each MISCELLANE DAILY PRN PRN Reason: Consult order Polyethylene Glycol (Polyethylene Glycol 3350 17 Gm Powd.Pack) 17 gm PO DAILY PRN PRN Reason: Constipation Sodium Chloride (0.9 % Sodium Chloride Flush 3 Ml Syringe) [facility] Last Admin: 02/23/24 07:14 Dose: Not Given Home Medications ?Medication ?Instructions ?Recorded ?Confirmed ?Last Taken ?Type acetaminophen 500 mg tablet 500 mg PO DAILY PRN Pain 02/22/24 02/22/24 Unknown History diphenhydramine HCl 25 mg tablet 25 mg PO BEDTIME PRN itch/sleep 02/22/24 02/22/24 Unknown History (Benadryl Allergy) famotidine 20 mg tablet 20 mg PO DAILY PRN Acid Reflux 02/22/24 02/22/24 Unknown History ibuprofen 200 mg tablet 200 mg PO TIDAC 02/22/24 02/22/24 02/20/24 History Physical Exam Vital Signs: Vital Signs: Last Vital Signs Temp 97.5 F 02/23/24 07:09 Pulse 83 02/23/24 07:09 Resp 16 02/23/24 07:09 BP 164/76 H 02/23/24 07:09 Pulse Ox 95 02/23/24 07:09 O2 Del Method Room Air 02/23/24 07:09 BMI result Body Mass Index 37.8 Const: General: comfortable, no acute distress and alert Nutritional Appearance: obese Orientation/consciousness: patient oriented x3 Resp: Effort & Inspection: normal respiratory effort Skin: Other: left upper back overlying superior border of the scapula- large area of deep erythema, induration and fluctuance underlying small wound opening draining purulence; area significantly tender Neuro: General: patient oriented x3 and moves all extremities Results Labs 02/23/24 06:38 02/23/24 06:38 Labs: Abnormal lab results 02/22/24 02/22/24 02/22/24 Range/Units 10:17 10:59 15:44 RBC (4.60-5.80) X10*6/uL Hgb (14.0-18.0) g/dl Hct (42.0-52.0) % ESR 83 H (0-15) MM/HR Sodium 129 L (135-145) mmol/L Chloride 95 L (96-108) mmol/L Carbon Dioxide 19 L (22-29) mmol/L POC Glucose 317 H (60-115) mg/dL Random Glucose 360 H* (60-115) mg/dL Hemoglobin A1c % 12.3 H (<6.0) % Lactic Acid 2.3 H* (0.5-2.0) mmol/L C-Reactive Protein 47.42 H (< or = 0.50) mg/dL Albumin 2.8 L (3.5-5.0) g/dL Beta-Hydroxybutyrate 4.33 H (0.02-0.27) mmol/L 02/22/24 02/22/24 02/22/24 Range/Units 16:17 17:17 18:23 RBC (4.60-5.80) X10*6/uL Hgb (14.0-18.0) g/dl Hct (42.0-52.0) % ESR (0-15) MM/HR Sodium 129 L (135-145) mmol/L Chloride (96-108) mmol/L Carbon Dioxide 18 L (22-29) mmol/L POC Glucose 240 H 257 H (60-115) mg/dL Random Glucose 341 H (60-115) mg/dL Hemoglobin A1c % (<6.0) % Lactic Acid (0.5-2.0) mmol/L C-Reactive Protein (< or = 0.50) mg/dL Albumin 2.9 L (3.5-5.0) g/dL Beta-Hydroxybutyrate (0.02-0.27) mmol/L 02/22/24 02/22/24 02/23/24 Range/Units 19:04 19:59 06:38 RBC 3.66 L (4.60-5.80) X10*6/uL Hgb 11.8 L (14.0-18.0) g/dl Hct 33.6 L (42.0-52.0) % ESR 86 H (0-15) MM/HR Sodium 132 L 131 L (135-145) mmol/L Chloride (96-108) mmol/L Carbon Dioxide 19 L 18 L (22-29) mmol/L POC Glucose 312 H (60-115) mg/dL Random Glucose 277 H 238 H (60-115) mg/dL Hemoglobin A1c % (<6.0) % Lactic Acid (0.5-2.0) mmol/L C-Reactive Protein 44.60 H (< or = 0.50) mg/dL Albumin (3.5-5.0) g/dL Beta-Hydroxybutyrate (0.02-0.27) mmol/L 02/23/24 Range/Units 07:17 RBC (4.60-5.80) X10*6/uL Hgb (14.0-18.0) g/dl Hct (42.0-52.0) % ESR (0-15) MM/HR Sodium (135-145) mmol/L Chloride (96-108) mmol/L Carbon Dioxide (22-29) mmol/L POC Glucose 231 H (60-115) mg/dL Random Glucose (60-115) mg/dL Hemoglobin A1c % (<6.0) % Lactic Acid (0.5-2.0) mmol/L C-Reactive Protein (< or = 0.50) mg/dL Albumin (3.5-5.0) g/dL Beta-Hydroxybutyrate (0.02-0.27) mmol/L Short CBC 02/23/24 Range/Units 06:38 WBC 9.5 (4.8-10.8) X10*3/uL Hgb 11.8 L (14.0-18.0) g/dl Hct 33.6 L (42.0-52.0) % Plt Count 208 (160-400) X10*3/uL BMP 02/22/24 02/22/24 02/22/24 10:59 16:17 19:04 Sodium 129 L 129 L 132 L Potassium 3.7 3.9 3.5 Chloride 95 L 98 99 Carbon Dioxide 19 L 18 L 19 L BUN 16 15 14 Creatinine 1.02 0.92 0.78 Calcium 9.2 9.2 8.9 02/23/24 06:38 Sodium 131 L Potassium 4.3 D Chloride 100 Carbon Dioxide 18 L BUN 14 Creatinine 0.82 Calcium 8.7 Liver Function 02/22/24 02/22/24 Range/Units 10:59 16:17 Total Bilirubin 0.6 0.5 (0.0-1.0) mg/dL AST 24 30 (5-37) U/L ALT 27 32 (0-40) U/L Alkaline Phosphatase 99 97 (39-117) U/L Albumin 2.8 L 2.9 L (3.5-5.0) g/dL All other labs normal. Imaging Abdomen CT scan report/results: report reviewed and image reviewed CT scan - chest: report reviewed and image reviewed Assessment and Plan (1) Diabetes mellitus, new onset: Status: Acute (2) Cellulitis and abscess of other specified site: Status: Acute Plan 63 year old male admitted with new onset diabetes mellitus and signficant cellulitis and abscess of left upper back. It was recommended to proceed with incision and drainage of the abscess at bedside along with continued IV abx therapy. Patient was placed in left lateral decubitus position. The site of procedure was confirmed by the patient. After assuring informed consent, the skin was prepped with Betadine. Local anesthesia was then infiltrated over the central portion of the wound opening and surrounding area. An incision was made with an 11 blade measuring approximately 3.5 cm at the same location. This was deepened into the subcutaneous tissue. A pocket was identified and a large amount of purulent fluid was evacuated. A culture was obtained. The area was then probed digitally to ensure any loculations were broken up and the entire collection was drained. No further fluctuance was appreciated. Pressure was held with sterile gauze until hemostasis ensured. Wet to dry saline rylie wrap was packed into the wound cavity followed by fluffs and heavy abd drainage dressing and tape. The patient tolerated the procedure very well. Can continue daily dressing changes for now. Cont IV abx. Procedures Date of Service Date of Service: 02/23/24 Abscess I/D Consent for Procedure: Elective - informed consent obtained Site: back (left upper back) Side (if applicable): left Sedation/analgesia: none Anesthetic used: lidocaine 1% (15cc) Technique: incised with #11 blade Packing used?: plain (saline soaked rylie wrap) Additional comments: fluffs, heavy abd drainage dressing placed following
[2024-02-23 11:03] LABS: Glucose, Whole Blood 278 mg/dL (60-115)
[2024-02-23] MEDS: vancomycin HCL 1,250 MG in 0.9 % Sodium Chloride 250 ML 166.67 MG IV ×2 (11:25→22:49)
--- NOTE | 2024-02-23 12:35 | P.PNIM_ITS ---
Subjective Subjective Date of Service: 02/23/24 Interval History: Seen and examined this morning Follow-up for abscess No overnight events Denies fever or chills Review of Systems Review of Systems: Yes all other systems are reviewed and are negative Constitutional Constitutional: Denies chills and Denies fever(s) Cardiovascular Cardiovascular: Denies chest pain, Denies palpitations and Denies dyspnea Respiratory Respiratory: Denies cough and Denies dyspnea Endocrine Endocrine: Denies palpitations Physical Exam 2 Vital Signs: Vital Signs: Last Vital Signs Temp 97.5 F 02/23/24 07:09 Pulse 83 02/23/24 07:09 Resp 16 02/23/24 07:09 BP 164/76 H 02/23/24 07:09 Pulse Ox 95 02/23/24 07:09 O2 Del Method Room Air 02/23/24 07:09 BMI result Body Mass Index 37.8 Const: General: cooperative, no acute distress, alert and awake Nutritional Appearance: obese Orientation/consciousness: patient oriented x3 Resp: Effort & Inspection: normal respiratory effort, able to speak in complete sentences, no respiratory distress and no use of accessory muscles Cardio: Rate: regular rate GI: Inspection: No distended and Yes obesity Palpation (GI): Soft to palpation and nontender Skin: Other: back abscess covered with dry dressing; still with significant cellulitis Neuro: General: patient oriented x3, moves all extremities and CN's II-XI intact bilaterally Extrem: General: Yes no pedal edema Objective Data Active Medications Acetaminophen (Acetaminophen 325 Mg Tablet) 650 mg PO Q6H PRN PRN Reason: Pain, Mild (Pain Scale 1-3), fever or headache Last Admin: 02/23/24 09:53 Dose: 650 mg Documented By: KATHERINE Docusate Sodium (Docusate Sodium 100 Mg Capsule) 100 mg PO BID [facility] Last Admin: 02/23/24 07:50 Dose: 100 mg Documented By: KATHERINE Glucose (Glucose Gel 15 Gm Gel..Gram.) 15 gm PO Q15M PRN; Protocol PRN Reason: per Hypoglycemia Standing Ord. Piperacillin Sod/Tazobactam (Sod 3.375 gm/ Sodium Chloride) 50 mls @ 100 mls/hr IV Q6H [facility] Last Infusion: 02/23/24 11:31 Dose: Infused Documented By: KATHERINE Dextrose (D10) 250 mls @ 750 mls/hr IV Q15M PRN; Protocol PRN Reason: per Hypoglycemia Standing Ord. Lactated Ringer's (Lr) 1,000 mls @ 100 mls/hr IVCONT .Q10H [facility] Last Admin: 02/23/24 06:21 Dose: 100 mls/hr Documented By: MARLEE Vancomycin HCl 1,250 mg/ (Sodium Chloride) 250 mls @ 166.667 mls/hr IV Q12H [facility] Last Admin: 02/23/24 11:25 Dose: 166.67 mls/hr Documented By: KATHERINE Insulin Human Lispro (Insulin Lispro 100 Unit/Ml 3 Ml Vial) 0 unit SUBCUT QIDACHS [facility]; Protocol Last Admin: 02/23/24 11:57 Dose: 6 unit Documented By: KATHERINE Melatonin (Melatonin 3 Mg Tablet) 6 mg PO BEDTIME PRN PRN Reason: Insomnia Morphine Sulfate (Morphine Sulfate 4 Mg/Ml Cartridge) 2 mg IVPUSH Q4H PRN; Protocol PRN Reason: Pain, Severe (Pain Scale 7-10) Nystatin (Nystatin Powder 15 Gm Bottle) 1 appl TOPICAL BID [facility]; Protocol Last Admin: 02/23/24 07:51 Dose: 1 appl Documented By: KATHERINE Ondansetron HCl (Ondansetron Hcl 4 Mg/2 Ml Vial) 4 mg IVPUSH Q8H PRN PRN Reason: Nausea and Vomiting Oxycodone HCl (Oxycodone Hcl Immed Release 5 Mg Tablet) 5 mg PO Q6H PRN PRN Reason: Pain, Moderate(Pain Scale 4-6) Pharmacy Consult (Consult Rx Vancomycin Dosing) 1 each MISCELLANE DAILY PRN PRN Reason: Consult order Polyethylene Glycol (Polyethylene Glycol 3350 17 Gm Powd.Pack) 17 gm PO DAILY PRN PRN Reason: Constipation Sodium Chloride (0.9 % Sodium Chloride Flush 3 Ml Syringe) 3 ml IVFLUSH QSHIFT [facility] Last Admin: 02/23/24 07:14 Dose: Not Given Documented By: KATHERINE Non-Admin Reason: IV Running Labs 02/23/24 06:38 02/23/24 06:38 Labs: Laboratory Results - last 24 hr 02/22/24 02/22/24 02/22/24 10:17 12:34 15:44 MCV MCH MCHC RDW Plt Count MPV Absolute Nucleated RBC Nucleated RBC % (auto) ESR Anion Gap Estim Creat Clear Calc Estimated GFR POC Glucose 317 H Random Glucose Estimat Average Glucose 306 Hemoglobin A1c % 12.3 H Lactic Acid F/U @ 2Hr 1.1 Calcium Total Bilirubin AST ALT Alkaline Phosphatase C-Reactive Protein Total Protein Albumin 02/22/24 02/22/24 02/22/24 16:17 17:17 18:23 MCV MCH MCHC RDW Plt Count MPV Absolute Nucleated RBC Nucleated RBC % (auto) ESR Anion Gap 17 Estim Creat Clear Calc 108.9 Estimated GFR > 60 POC Glucose 240 H 257 H Random Glucose 341 H Estimat Average Glucose Hemoglobin A1c % Lactic Acid F/U @ 2Hr Calcium 9.2 Total Bilirubin 0.5 AST 30 ALT 32 Alkaline Phosphatase 97 C-Reactive Protein Total Protein 7.1 Albumin 2.9 L 02/22/24 02/22/24 02/23/24 19:04 19:59 06:38 MCV 91.8 MCH 32.2 MCHC 35.1 RDW 12.5 Plt Count 208 MPV 10.1 Absolute Nucleated RBC 0.000 Nucleated RBC % (auto) 0.0 ESR 86 H Anion Gap 18 17 Estim Creat Clear Calc 128.4 123.4 Estimated GFR > 60 > 60 POC Glucose 312 H Random Glucose 277 H 238 H Estimat Average Glucose Hemoglobin A1c % Lactic Acid F/U @ 2Hr Calcium 8.9 8.7 Total Bilirubin AST ALT Alkaline Phosphatase C-Reactive Protein 44.60 H Total Protein Albumin 02/23/24 02/23/24 07:17 10:54 MCV MCH MCHC RDW Plt Count MPV Absolute Nucleated RBC Nucleated RBC % (auto) ESR Anion Gap Estim Creat Clear Calc Estimated GFR POC Glucose 231 H 278 H Random Glucose Estimat Average Glucose Hemoglobin A1c % Lactic Acid F/U @ 2Hr Calcium Total Bilirubin AST ALT Alkaline Phosphatase C-Reactive Protein Total Protein Albumin Microbiology Microbiology Results: Microbiology 02/22/24 10:29 Blood Culture - Preliminary Blood - Venous No growth after 24 hours. 02/22/24 10:17 Blood Culture - Preliminary Blood - Venous No growth after 24 hours. 02/23/24 09:50 Gram Stain - Final Back Left Assessment and Plan (1) Acute hyperglycemia: Status: Acute (2) Cellulitis and abscess of other specified site: Status: Acute Plan This is a 63-year-old male with history of hypertension, noncompliant with medication who has not seen a medical provider in the past 5 years who presents with 10 day history of increasing painful red area on his back found to have abscess and new diagnosis of diabetes Sepsis due to Abscess and cellulitis of upper back Meets sepsis criteria with leukocytosis and tachycardia. Lactic acid 2.3. No severe features Blood pressure stable We will continue broad-spectrum antibiotics Follow-up blood culture results Follow inflammatory markers Seen by General surgery, status post I&D New onset diabetes hemoglobin A1c 12.3 start low dose lantus, can titrate as needed Continue sliding scale of insulin Diabetic diet acute metabolic acidosis likely due to elevated lactic acid no evidence of DKA Follow chemistries closely Mechanical fall Denies loss of consciousness, head strike. No neck pain Emergency room provider has ordered CT scan of head and neck, pending at this time PT evaluation- recommends home with PT services HTN h/o HTN, stopped meds 4-5 years ago Blood pressure elevated, will start lisinopril 5 mg daily Monitor blood pressure trend Pseudo hyponatremia Due to hyperglycemia Normocytic anemia Above transfusion threshold Morbid obesity BMI 37.1 Weight loss encouraged dvt ppx - mechanical devices Patient requires ongoing inpatient stay for IV antibiotics, treatment of newly diagnosed diabetes and unstable blood sugar as well as surgical evaluation and probable I&D Quality Stroke Does the patient have a stroke diagnosis?: No VTE Prior VTE?: No VTE Risk Level:: Medical - moderate - high VTE Device Contraindication: N/A - Device Ordered VTE Drug Contraindication: Treatment Not Indicated
[2024-02-23 13:23] VITALS: BP 145/62
[2024-02-23] MEDS: lisinopriL 5 MG TABLET PO (13:23)
[2024-02-23 15:19] VITALS: BP 162/75; PULSE 80; RESP 20; TEMP 36.5; O2SAT 96
--- NOTE | 2024-02-23 15:52 | MHC.CM.PN ---
IMM DELIVERED. PATIENT LIVES IN A HOME W/ . USES CANE PRN, OTHERWISE INDEPENDENT. NO PCP, [facility] [place] PROVIDER PAMPHLET PROVIDED. PATIENT WILL SCHEDULE APPT. DISCUSSED THE IMPORTANCE OF ESTABLISHING CARE W/ PCP. PT HAS NEW DX DIABETES. PT VERBALIZED UNDERSTANDING. NO HCP. CM PROVIDED EDUCATION AND OFFERED ASSISTANCE. PATIENT DECLINED. DP: PT REC HOME W/ SERVICES. HOWEVER PATIENT DOES NOT HAVE PCP TO SIGN ORDERS. PATIENT WOULD LIKE OUTPT PHYSICAL THERAPY. CAN TRANSPORT TO APPOINTMENTS AND HOME ON DC. CM WILL CONTINUE TO FOLLOW.
[2024-02-23 16:17] LABS: Glucose, Whole Blood 263 mg/dL (60-115)
[2024-02-23] MEDS: 0.9 % Sodium Chloride Flush 3 ML SYRINGE IVFLUSH ×2 (16:52→20:20)
[2024-02-23 19:22] VITALS: BP 145/71; PULSE 90; RESP 18; TEMP 36.9; O2SAT 94
[2024-02-23 20:13] LABS: Glucose, Whole Blood 282 mg/dL (60-115)
[2024-02-23] MEDS: Insulin Glargine,Hum.rec.anlog 100 UNIT/ML 10 ML VIAL SUBCUT (20:15)
[2024-02-23 21:40] LABS: Vancomycin Random 12.7 mcg/mL (15-20)
[2024-02-24] MEDS: Piperacillin Sodium/Tazobactam 3.375 GM in 0.9 % Sodium Chloride 50 ML IV (03:39)
[2024-02-24 04:00] VITALS: BP 141/63; PULSE 77; RESP 16; TEMP 36.1; O2SAT 95
[2024-02-24 07:13] VITALS: BP 164/84; PULSE 77; RESP 16; TEMP 36.4; O2SAT 96
[2024-02-24 07:15] LABS: Estimated Glomerular Filt Rate > 60
[2024-02-24 07:32] LABS: Glucose, Whole Blood 227 mg/dL (60-115)
[2024-02-24 08:03] VITALS: BP 164/84
[2024-02-24] MEDS: lisinopriL 5 MG TABLET PO (08:03)
[2024-02-24] MEDS: Insulin Lispro 100 UNIT/ML 3 ML VIAL SUBCUT ×4 (08:04→20:53)
[2024-02-24] MEDS: Docusate Sodium 100 MG CAPSULE PO ×2 (08:04→20:52)
[2024-02-24] MEDS: 0.9 % Sodium Chloride Flush 3 ML SYRINGE IVFLUSH ×2 (08:04→20:53)
[2024-02-24] MEDS: Nystatin Powder 15 GM BOTTLE 1 APPL TOPICAL ×2 (08:05→20:54)
--- NOTE | 2024-02-24 10:24 | PM.PNGS ---
Subjective Subjective Date of Service: 02/24/24 Interval history: Feels a little better this morning. C/o wound itching. Physical Exam Vital Signs: Vital Signs: Last Vital Signs Temp 97.6 F 02/24/24 07:13 Pulse 77 02/24/24 07:13 Resp 16 02/24/24 07:13 BP 164/84 H 02/24/24 08:03 Pulse Ox 96 02/24/24 07:13 O2 Del Method Room Air 02/24/24 07:13 BMI result Body Mass Index 37.8 Const: General: comfortable, no acute distress and alert Orientation/consciousness: patient oriented x3 Resp: Effort & Inspection: normal respiratory effort Skin: Other: left upper back- erythema and induration somewhat improved, still with a deep erythema more medially, I&D site remains open and draining purulence Neuro: General: patient oriented x3 Objective Data Active Medications Acetaminophen (Acetaminophen 325 Mg Tablet) 650 mg PO Q6H PRN PRN Reason: Pain, Mild (Pain Scale 1-3), fever or headache Last Admin: 02/23/24 09:53 Dose: 650 mg Documented By: KATHERINE Docusate Sodium (Docusate Sodium 100 Mg Capsule) 100 mg PO BID [facility] Last Admin: 02/24/24 08:04 Dose: 100 mg Documented By: AMALIA Glucose (Glucose Gel 15 Gm Gel..Gram.) 15 gm PO Q15M PRN; Protocol PRN Reason: per Hypoglycemia Standing Ord. Dextrose (D10) 250 mls @ 750 mls/hr IV Q15M PRN; Protocol PRN Reason: per Hypoglycemia Standing Ord. Vancomycin HCl 1,250 mg/ (Sodium Chloride) 250 mls @ 166.667 mls/hr IV Q12H [facility] Last Infusion: 02/24/24 00:28 Dose: Infused Documented By: SAMUELRISJeanne Insulin Glargine (Insulin Glargine,Hum.Rec.Anlog 100 Unit/Ml 10 Ml Vial) 5 unit SUBCUT BEDTIME [facility] Last Admin: 02/23/24 20:15 Dose: 5 unit Documented By: MARLEE Insulin Human Lispro (Insulin Lispro 100 Unit/Ml 3 Ml Vial) 0 unit SUBCUT QIDACHS [facility] [place]; Protocol Last Admin: 02/24/24 08:04 Dose: 4 unit Documented By: AMALIA Lisinopril (Lisinopril 5 Mg Tablet) 5 mg PO DAILY [facility]; Protocol Last Admin: 02/24/24 08:03 Dose: 5 mg Documented By: AMALIA Melatonin (Melatonin 3 Mg Tablet) 6 mg PO BEDTIME PRN PRN Reason: Insomnia Morphine Sulfate (Morphine Sulfate 4 Mg/Ml Cartridge) 2 mg IVPUSH Q4H PRN; Protocol PRN Reason: Pain, Severe (Pain Scale 7-10) Nystatin (Nystatin Powder 15 Gm Bottle) 1 appl TOPICAL BID [facility]; Protocol Last Admin: 02/24/24 08:05 Dose: 1 appl Documented By: AMALIA Ondansetron HCl (Ondansetron Hcl 4 Mg/2 Ml Vial) 4 mg IVPUSH Q8H PRN PRN Reason: Nausea and Vomiting Oxycodone HCl (Oxycodone Hcl Immed Release 5 Mg Tablet) 5 mg PO Q6H PRN PRN Reason: Pain, Moderate(Pain Scale 4-6) Pharmacy Consult (Consult Rx Vancomycin Dosing) 1 each MISCELLANE DAILY PRN PRN Reason: Consult order Polyethylene Glycol (Polyethylene Glycol 3350 17 Gm Powd.Pack) 17 gm PO DAILY PRN PRN Reason: Constipation Sodium Chloride (0.9 % Sodium Chloride Flush 3 Ml Syringe) [facility] Last Admin: 02/24/24 08:04 Dose: 3 ml Documented By: AMALIA Labs 02/23/24 06:38 02/24/24 05:48 Labs: Laboratory Results - last 24 hr 02/23/24 02/23/24 02/23/24 10:54 16:06 20:08 Estim Creat Clear Calc Estimated GFR POC Glucose 278 H 263 H 282 H Random Vancomycin 02/23/24 02/24/24 02/24/24 20:58 05:48 07:18 Estim Creat Clear Calc 119.0 Estimated GFR > 60 POC Glucose 227 H Random Vancomycin 12.7 L Microbiology Microbiology Results: Microbiology 02/23/24 09:50 Gram Stain - Final Back Left Routine Culture - Preliminary Staphylococcus aureus 02/22/24 10:29 Blood Culture - Preliminary Blood - Venous No growth after 24 hours. 02/22/24 10:17 Blood Culture - Preliminary Blood - Venous No growth after 24 hours. Procedures Date of Service Date of Service: 02/24/24 Progress Note: A&P Assessment and plan (1) Diabetes mellitus, new onset: Status: Acute (2) Cellulitis and abscess of other specified site: Status: Acute Plan Cellulitis slowly improving. WBC normalized. Cont IV abx. Cont daily dressing changes with saline soaked rylie followed by fluffs and abd dressing. Encouraged to shower to help wash out wound. Time Spent With Patient Time: Total time managing care of this patient today ____ minutes. Quality Stroke Does the patient have a stroke diagnosis?: No VTE Prior VTE?: No VTE Risk Level:: Medical - moderate - high VTE Device Contraindication: N/A - Device Ordered VTE Drug Contraindication: Treatment Not Indicated
[2024-02-24] MEDS: vancomycin HCL 1,250 MG in 0.9 % Sodium Chloride 250 ML 166.67 MG IV ×2 (10:28→22:55)
[2024-02-24 11:26] LABS: Glucose, Whole Blood 317 mg/dL (60-115)
--- NOTE | 2024-02-24 13:54 | P.PNIM_ITS ---
Subjective Subjective Date of Service: 02/24/24 Interval History: Seen and examined this morning Follow-up for cellulitis/abscess/new diagnosis of diabetes Overall feeling much better No fever, chills Review of Systems Review of Systems: Yes all other systems are reviewed and are negative Constitutional Constitutional: Denies chills and Denies fever(s) Cardiovascular Cardiovascular: Denies chest pain, Denies palpitations and Denies dyspnea Respiratory Respiratory: Denies cough and Denies dyspnea Endocrine Endocrine: Denies palpitations Physical Exam 2 Vital Signs: Vital Signs: Last Vital Signs Temp 97.6 F 02/24/24 07:13 Pulse 77 02/24/24 07:13 Resp 16 02/24/24 07:13 BP 164/84 H 02/24/24 08:03 Pulse Ox 96 02/24/24 07:13 O2 Del Method Room Air 02/24/24 07:13 BMI result Body Mass Index 37.8 Const: General: cooperative, no acute distress, alert and awake Nutritional Appearance: obese Orientation/consciousness: patient oriented x3 Resp: Effort & Inspection: normal respiratory effort, able to speak in complete sentences, no respiratory distress and no use of accessory muscles Cardio: Rate: regular rate GI: Inspection: No distended and Yes obesity Palpation (GI): Soft to palpation and nontender Skin: Other: back abscess covered with dry dressing; still with significant cellulitis Neuro: General: patient oriented x3, moves all extremities and CN's II-XI intact bilaterally Extrem: General: Yes no pedal edema Objective Data Active Medications Acetaminophen (Acetaminophen 325 Mg Tablet) 650 mg PO Q6H PRN PRN Reason: Pain, Mild (Pain Scale 1-3), fever or headache Last Admin: 02/23/24 09:53 Dose: 650 mg Documented By: KATHERINE Docusate Sodium (Docusate Sodium 100 Mg Capsule) 100 mg PO BID [facility] Last Admin: 02/24/24 08:04 Dose: 100 mg Documented By: AMALIA Glucose (Glucose Gel 15 Gm Gel..Gram.) 15 gm PO Q15M PRN; Protocol PRN Reason: per Hypoglycemia Standing Ord. Dextrose (D10) 250 mls @ 750 mls/hr IV Q15M PRN; Protocol PRN Reason: per Hypoglycemia Standing Ord. Vancomycin HCl 1,250 mg/ (Sodium Chloride) 250 mls @ 166.667 mls/hr IV Q12H [facility] Last Infusion: 02/24/24 12:06 Dose: Infused Documented By: AMALIA Insulin Glargine (Insulin Glargine,Hum.Rec.Anlog 100 Unit/Ml 10 Ml Vial) 5 unit SUBCUT BEDTIME [facility] Last Admin: 02/23/24 20:15 Dose: 5 unit Documented By: SAMUELRISJeanne Insulin Human Lispro (Insulin Lispro 100 Unit/Ml 3 Ml Vial) 0 unit SUBCUT QIDACHS [facility]; Protocol Last Admin: 02/24/24 12:03 Dose: 8 unit Documented By: AMALIA Lisinopril (Lisinopril 5 Mg Tablet) 5 mg PO DAILY [facility]; Protocol Last Admin: 02/24/24 08:03 Dose: 5 mg Documented By: AMALIA Melatonin (Melatonin 3 Mg Tablet) 6 mg PO BEDTIME PRN PRN Reason: Insomnia Morphine Sulfate (Morphine Sulfate 4 Mg/Ml Cartridge) 2 mg IVPUSH Q4H PRN; Protocol PRN Reason: Pain, Severe (Pain Scale 7-10) Nystatin (Nystatin Powder 15 Gm Bottle) 1 appl TOPICAL BID [facility]; Protocol Last Admin: 02/24/24 08:05 Dose: 1 appl Documented By: AMALIA Ondansetron HCl (Ondansetron Hcl 4 Mg/2 Ml Vial) 4 mg IVPUSH Q8H PRN PRN Reason: Nausea and Vomiting Oxycodone HCl (Oxycodone Hcl Immed Release 5 Mg Tablet) 5 mg PO Q6H PRN PRN Reason: Pain, Moderate(Pain Scale 4-6) Pharmacy Consult (Consult Rx Vancomycin Dosing) 1 each MISCELLANE DAILY PRN PRN Reason: Consult order Polyethylene Glycol (Polyethylene Glycol 3350 17 Gm Powd.Pack) 17 gm PO DAILY PRN PRN Reason: Constipation Sodium Chloride (0.9 % Sodium Chloride Flush 3 Ml Syringe) 3 ml IVFLUSH QSHIFT [facility] Last Admin: 02/24/24 08:04 Dose: 3 ml Documented By: AMALIA Labs 02/23/24 06:38 02/24/24 05:48 Labs: Laboratory Results - last 24 hr 02/23/24 02/23/24 02/23/24 16:06 20:08 20:58 Estim Creat Clear Calc Estimated GFR POC Glucose 263 H 282 H Random Vancomycin 12.7 L 02/24/24 02/24/24 02/24/24 05:48 07:18 11:21 Estim Creat Clear Calc 119.0 Estimated GFR > 60 POC Glucose 227 H 317 H Random Vancomycin Microbiology Microbiology Results: Microbiology 02/22/24 10:29 Blood Culture - Preliminary Blood - Venous No growth after 48 hours. 02/22/24 10:17 Blood Culture - Preliminary Blood - Venous No growth after 48 hours. 02/23/24 09:50 Gram Stain - Final Back Left Routine Culture - Preliminary Staphylococcus aureus Assessment and Plan (1) Diabetes mellitus, new onset: Status: Acute (2) Abscess: Status: Acute (3) Cellulitis: Status: Acute Plan This is a 63-year-old male with history of hypertension, noncompliant with medication who has not seen a medical provider in the past 5 years who presents with 10 day history of increasing painful red area on his back found to have abscess and new diagnosis of diabetes Sepsis due to Abscess and cellulitis of upper back Sepsis resolved Blood cultures negative to date Wound culture growing Staphylococcus aureus We will continue vancomycin, stop Zosyn General surgery following, status post I&D 02/22 New onset diabetes with hyperglycemia hemoglobin A1c 12.3 started on low dose lantus,titrate prn Continue sliding scale of insulin Diabetic diet pt does not feel comfortable going home with insulin, likely metformin and glipizide upon discharge acute metabolic acidosis likely due to elevated lactic acid no evidence of DKA Mechanical fall Denies loss of consciousness, head strike. No neck pain Emergency room provider has ordered CT scan of head and neck, pending at this time PT evaluation- recommends home with PT services HTN h/o HTN, stopped meds 4-5 years ago started on lisinopril 5 mg daily, will likely need increase to 10 mg Pseudo hyponatremia Due to hyperglycemia Normocytic anemia Above transfusion threshold Morbid obesity BMI 37.1 Weight loss encouraged dvt ppx - mechanical devices Patient requires ongoing inpatient stay for IV antibiotics, treatment of newly diagnosed diabetes and unstable blood sugar as well as surgical evaluation and probable I&D Quality Stroke Does the patient have a stroke diagnosis?: No VTE Prior VTE?: No VTE Risk Level:: Medical - moderate - high VTE Device Contraindication: N/A - Device Ordered VTE Drug Contraindication: Treatment Not Indicated
[2024-02-24 15:22] VITALS: BP 148/98; PULSE 81; RESP 14; TEMP 36; O2SAT 97
[2024-02-24 16:10] LABS: Glucose, Whole Blood 244 mg/dL (60-115)
[2024-02-24 19:39] VITALS: BP 142/86; PULSE 80; RESP 18; TEMP 36.2; O2SAT 98
[2024-02-24 20:02] LABS: Glucose, Whole Blood 249 mg/dL (60-115)
[2024-02-24] MEDS: Insulin Glargine,Hum.rec.anlog 100 UNIT/ML 10 ML VIAL SUBCUT (20:53)
[2024-02-24 21:42] LABS: Vancomycin Random 13.4 mcg/mL (15-20)
[2024-02-25 03:16] VITALS: BP 163/81; PULSE 77; RESP 16; TEMP 36.1; O2SAT 95
[2024-02-25 06:46] LABS: Anion Gap 13 (12-20); Blood Urea Nitrogen 9 mg/dL (9-16); Calcium 8.7 mg/dL (8.4-10.2); Carbon Dioxide 24 mmol/L (22-29); Chloride 103 mmol/L (96-108); Creatinine Clr Calc Pharmacy 134.9; Estimated Glomerular Filt Rate > 60; Glucose Random 221 mg/dL (60-115); Potassium 3.5 mmol/L (3.3-5.1); Sodium 136 mmol/L (135-145)
[2024-02-25 07:23] LABS: Glucose, Whole Blood 207 mg/dL (60-115)
[2024-02-25 07:24] VITALS: BP 164/77; PULSE 75; RESP 16; TEMP 36; O2SAT 95
[2024-02-25] MEDS: Docusate Sodium 100 MG CAPSULE PO ×2 (08:10→21:16)
[2024-02-25] MEDS: Insulin Lispro 100 UNIT/ML 3 ML VIAL SUBCUT ×4 (08:10→21:16)
[2024-02-25] MEDS: lisinopriL 10 MG TABLET PO (08:10)
[2024-02-25] MEDS: 0.9 % Sodium Chloride Flush 3 ML SYRINGE IVFLUSH ×3 (08:12→22:36)
[2024-02-25] MEDS: Nystatin Powder 15 GM BOTTLE 1 APPL TOPICAL ×2 (08:13→21:18)
[2024-02-25] MEDS: vancomycin HCL 1,250 MG in 0.9 % Sodium Chloride 250 ML 166.67 MG IV ×2 (10:53→22:36)
[2024-02-25 11:22] LABS: Glucose, Whole Blood 275 mg/dL (60-115)
--- NOTE | 2024-02-25 13:46 | P.PNIM_ITS ---
Subjective Subjective Date of Service: 02/25/24 Interval History: Seen and examined this morning Follow-up or cellulitis and abscess of upper back Area of cellulitis appears much improved. Drainage decreasing No fever, chills Review of Systems Review of Systems: Yes all other systems are reviewed and are negative Constitutional Constitutional: Denies chills and Denies fever(s) Cardiovascular Cardiovascular: Denies chest pain and Denies palpitations Gastrointestinal Gastrointestinal: Denies abdominal pain Endocrine Endocrine: Denies palpitations Physical Exam 2 Vital Signs: Vital Signs: Last Vital Signs Temp 96.8 F 02/25/24 07:24 Pulse 75 02/25/24 07:24 Resp 16 02/25/24 07:24 BP 164/77 H 02/25/24 07:24 Pulse Ox 95 02/25/24 07:24 O2 Del Method Room Air 02/25/24 07:24 BMI result Body Mass Index 37.8 Const: General: cooperative, no acute distress, alert and awake Nutritional Appearance: obese Orientation/consciousness: patient oriented x3 Resp: Effort & Inspection: normal respiratory effort, able to speak in complete sentences, no respiratory distress and no use of accessory muscles Cardio: Rate: regular rate GI: Inspection: No distended and Yes obesity Palpation (GI): Soft to palpation and nontender Skin: Other: Area of erythema on upper back significantly improved, I&D site actively draining Neuro: General: patient oriented x3, moves all extremities and CN's II-XI intact bilaterally Extrem: General: Yes no pedal edema Objective Data Active Medications Acetaminophen (Acetaminophen 325 Mg Tablet) 650 mg PO Q6H PRN PRN Reason: Pain, Mild (Pain Scale 1-3), fever or headache Last Admin: 02/23/24 09:53 Dose: 650 mg Documented By: KATHERINE Docusate Sodium (Docusate Sodium 100 Mg Capsule) 100 mg PO BID [facility] Last Admin: 02/25/24 08:10 Dose: 100 mg Documented By: ASHU Glucose (Glucose Gel 15 Gm Gel..Gram.) 15 gm PO Q15M PRN; Protocol PRN Reason: per Hypoglycemia Standing Ord. Dextrose (D10) 250 mls @ 750 mls/hr IV Q15M PRN; Protocol PRN Reason: per Hypoglycemia Standing Ord. Vancomycin HCl 1,250 mg/ (Sodium Chloride) 250 mls @ 166.667 mls/hr IV Q12H [facility] Last Infusion: 02/25/24 12:37 Dose: Infused Documented By: ASHU Insulin Glargine (Insulin Glargine,Hum.Rec.Anlog 100 Unit/Ml 10 Ml Vial) 5 unit SUBCUT BEDTIME [facility] Last Admin: 02/24/24 20:53 Dose: 5 unit Documented By: RINKU Insulin Human Lispro (Insulin Lispro 100 Unit/Ml 3 Ml Vial) 0 unit SUBCUT QIDACHS [facility]; Protocol Last Admin: 02/25/24 12:04 Dose: 6 unit Documented By: ASHU Lisinopril (Lisinopril 10 Mg Tablet) 10 mg PO DAILY [facility]; Protocol Last Admin: 02/25/24 08:10 Dose: 10 mg Documented By: ASHU Melatonin (Melatonin 3 Mg Tablet) 6 mg PO BEDTIME PRN PRN Reason: Insomnia Morphine Sulfate (Morphine Sulfate 4 Mg/Ml Cartridge) 2 mg IVPUSH Q4H PRN; Protocol PRN Reason: Pain, Severe (Pain Scale 7-10) Nystatin (Nystatin Powder 15 Gm Bottle) 1 appl TOPICAL BID [facility]; Protocol Last Admin: 02/25/24 08:13 Dose: 1 appl Documented By: ASHU Ondansetron HCl (Ondansetron Hcl 4 Mg/2 Ml Vial) 4 mg IVPUSH Q8H PRN PRN Reason: Nausea and Vomiting Oxycodone HCl (Oxycodone Hcl Immed Release 5 Mg Tablet) 5 mg PO Q6H PRN PRN Reason: Pain, Moderate(Pain Scale 4-6) Pharmacy Consult (Consult Rx Vancomycin Dosing) 1 each MISCELLANE DAILY PRN PRN Reason: Consult order Polyethylene Glycol (Polyethylene Glycol 3350 17 Gm Powd.Pack) 17 gm PO DAILY PRN PRN Reason: Constipation Sodium Chloride (0.9 % Sodium Chloride Flush 3 Ml Syringe) 3 ml IVFLUSH QSHIFT [facility] Last Admin: 02/25/24 08:12 Dose: 3 ml Documented By: ASHU Labs 02/23/24 06:38 02/25/24 05:25 Labs: Laboratory Results - last 24 hr 02/24/24 02/24/24 02/24/24 16:06 19:57 21:05 Anion Gap Estim Creat Clear Calc Estimated GFR POC Glucose 244 H 249 H Random Glucose Calcium Random Vancomycin 13.4 L 02/25/24 02/25/24 02/25/24 05:25 07:13 11:18 Anion Gap 13 Estim Creat Clear Calc 134.9 Estimated GFR > 60 POC Glucose 207 H 275 H Random Glucose 221 H Calcium 8.7 Random Vancomycin Microbiology Microbiology Results: Microbiology 02/23/24 09:50 Gram Stain - Final Back Left Routine Culture - Preliminary Staphylococcus aureus 02/22/24 10:29 Blood Culture - Preliminary Blood - Venous No growth after 48 hours. 02/22/24 10:17 Blood Culture - Preliminary Blood - Venous No growth after 48 hours. Assessment and Plan (1) Diabetes mellitus, new onset: Status: Acute (2) Abscess: Status: Acute (3) Cellulitis: Status: Acute Plan This is a 63-year-old male with history of hypertension, noncompliant with medication who has not seen a medical provider in the past 5 years who presents with 10 day history of increasing painful red area on his back found to have abscess and new diagnosis of diabetes Sepsis due to Abscess and cellulitis of upper back Sepsis resolved Blood cultures negative to date Wound culture growing Staphylococcus aureus We will continue vancomycin, stop Zosyn General surgery following, status post I&D 02/22 New onset diabetes with hyperglycemia hemoglobin A1c 12.3 started on low dose lantus,titrate prn Continue sliding scale of insulin Diabetic diet pt does not feel comfortable going home with insulin, likely metformin and glipizide upon discharge acute metabolic acidosis.resolved likely due to elevated lactic acid no evidence of DKA Mechanical fall Denies loss of consciousness, head strike. No neck pain CT scan of head and neck negative PT evaluation- recommends home with PT services HTN h/o HTN, stopped meds 4-5 years ago Lisinopril increased to 10 mg Pseudo hyponatremia. resolved Due to hyperglycemia Normocytic anemia Above transfusion threshold Morbid obesity BMI 37.1 Weight loss encouraged dvt ppx - mechanical devices Patient requires ongoing inpatient stay for IV antibiotics, treatment of newly diagnosed diabetes and unstable blood sugar as well as surgical evaluation and probable I&D Quality Stroke Does the patient have a stroke diagnosis?: No VTE Prior VTE?: No VTE Risk Level:: Medical - moderate - high VTE Device Contraindication: N/A - Device Ordered VTE Drug Contraindication: Treatment Not Indicated
--- NOTE | 2024-02-25 14:28 | P.PNGS_ITS ---
Subjective Subjective Date of Service: 02/25/24 Interval history: Patient feeling much better. Had a recent shower and wound was cleaned and repacked after this. Physical Exam 2 Vital Signs: Vital Signs: Last Vital Signs Temp 96.8 F 02/25/24 07:24 Pulse 75 02/25/24 07:24 Resp 16 02/25/24 07:24 BP 164/77 H 02/25/24 07:24 Pulse Ox 95 02/25/24 07:24 O2 Del Method Room Air 02/25/24 07:24 BMI result Body Mass Index 37.8 Const: Other: Patient is much more alert and conversant. Back/Spine/Pelvis: Other: I&D wound granulating uneventfully, much improved status post I&D. Patient has medial to this a 2nd area of mild to moderate induration but no evidence of any gross fluctuance at this time. Objective Data Active Medications Acetaminophen (Acetaminophen 325 Mg Tablet) 650 mg PO Q6H PRN PRN Reason: Pain, Mild (Pain Scale 1-3), fever or headache Last Admin: 02/23/24 09:53 Dose: 650 mg Documented By: KATHERINE Docusate Sodium (Docusate Sodium 100 Mg Capsule) 100 mg PO BID [facility] Last Admin: 02/25/24 08:10 Dose: 100 mg Documented By: ASHU Glucose (Glucose Gel 15 Gm Gel..Gram.) 15 gm PO Q15M PRN; Protocol PRN Reason: per Hypoglycemia Standing Ord. Dextrose (D10) 250 mls @ 750 mls/hr IV Q15M PRN; Protocol PRN Reason: per Hypoglycemia Standing Ord. Vancomycin HCl 1,250 mg/ (Sodium Chloride) 250 mls @ 166.667 mls/hr IV Q12H [facility] Last Infusion: 02/25/24 12:37 Dose: Infused Documented By: ASHU Insulin Glargine (Insulin Glargine,Hum.Rec.Anlog 100 Unit/Ml 10 Ml Vial) 5 unit SUBCUT BEDTIME [facility] Last Admin: 02/24/24 20:53 Dose: 5 unit Documented By: RINKU Insulin Human Lispro (Insulin Lispro 100 Unit/Ml 3 Ml Vial) 0 unit SUBCUT QIDACHS [facility]; Protocol Last Admin: 02/25/24 12:04 Dose: 6 unit Documented By: ASHU Lisinopril (Lisinopril 10 Mg Tablet) 10 mg PO DAILY [facility]; Protocol Last Admin: 02/25/24 08:10 Dose: 10 mg Documented By: ASHU Melatonin (Melatonin 3 Mg Tablet) 6 mg PO BEDTIME PRN PRN Reason: Insomnia Morphine Sulfate (Morphine Sulfate 4 Mg/Ml Cartridge) 2 mg IVPUSH Q4H PRN; Protocol PRN Reason: Pain, Severe (Pain Scale 7-10) Nystatin (Nystatin Powder 15 Gm Bottle) 1 appl TOPICAL BID [facility]; Protocol Last Admin: 02/25/24 08:13 Dose: 1 appl Documented By: ASHU Ondansetron HCl (Ondansetron Hcl 4 Mg/2 Ml Vial) 4 mg IVPUSH Q8H PRN PRN Reason: Nausea and Vomiting Oxycodone HCl (Oxycodone Hcl Immed Release 5 Mg Tablet) 5 mg PO Q6H PRN PRN Reason: Pain, Moderate(Pain Scale 4-6) Pharmacy Consult (Consult Rx Vancomycin Dosing) 1 each MISCELLANE DAILY PRN PRN Reason: Consult order Polyethylene Glycol (Polyethylene Glycol 3350 17 Gm Powd.Pack) 17 gm PO DAILY PRN PRN Reason: Constipation Sodium Chloride (0.9 % Sodium Chloride Flush 3 Ml Syringe) 3 ml IVFLUSH QSHIFT [facility] Last Admin: 02/25/24 08:12 Dose: 3 ml Documented By: ASHU Labs 02/23/24 06:38 02/25/24 05:25 Labs: Laboratory Results - last 24 hr 02/24/24 02/24/24 02/24/24 16:06 19:57 21:05 Anion Gap Estim Creat Clear Calc Estimated GFR POC Glucose 244 H 249 H Random Glucose Calcium Random Vancomycin 13.4 L 02/25/24 02/25/24 02/25/24 05:25 07:13 11:18 Anion Gap 13 Estim Creat Clear Calc 134.9 Estimated GFR > 60 POC Glucose 207 H 275 H Random Glucose 221 H Calcium 8.7 Random Vancomycin Microbiology Microbiology Results: Microbiology 02/23/24 09:50 Gram Stain - Final Back Left Routine Culture - Preliminary Staphylococcus aureus 02/22/24 10:29 Blood Culture - Preliminary Blood - Venous No growth after 48 hours. 02/22/24 10:17 Blood Culture - Preliminary Blood - Venous No growth after 48 hours. Procedures Date of Service Date of Service: 02/25/24 Progress Note: A&P Assessment and plan (1) Abscess: Status: Acute (2) Cellulitis: Status: Acute Plan Continue local wound care and IV antibiotics. I discussed with the patient that his 2nd area of induration may eventually require I and D as well but at present we will treat this conservatively. Patient understood. All questions answered. Time Spent With Patient Time: Total time managing care of this patient today ____ minutes. Quality Stroke Does the patient have a stroke diagnosis?: No VTE Prior VTE?: No VTE Risk Level:: Medical - moderate - high VTE Device Contraindication: N/A - Device Ordered VTE Drug Contraindication: Treatment Not Indicated
[2024-02-25 15:53] VITALS: BP 168/80; PULSE 86; RESP 18; TEMP 36; O2SAT 97
[2024-02-25 16:42] LABS: Glucose, Whole Blood 256 mg/dL (60-115)
[2024-02-25 20:00] VITALS: BP 186/92; PULSE 85; RESP 18; TEMP 36.3; O2SAT 96
[2024-02-25 20:29] LABS: Glucose, Whole Blood 308 mg/dL (60-115)
[2024-02-25] MEDS: Insulin Glargine,Hum.rec.anlog 100 UNIT/ML 10 ML VIAL SUBCUT (21:18)
[2024-02-26] VITALS: BP 152/86; PULSE 94; RESP 16; TEMP 36.6; O2SAT 95
[2024-02-26 06:32] LABS: Creatinine Clr Calc Pharmacy 126.5; Estimated Glomerular Filt Rate > 60
[2024-02-26 07:21] VITALS: BP 159/82; PULSE 78; RESP 18; TEMP 36.2; O2SAT 97
[2024-02-26 07:29] LABS: Glucose, Whole Blood 268 mg/dL (60-115)
[2024-02-26] MEDS: lisinopriL 10 MG TABLET PO (08:16)
[2024-02-26] MEDS: 0.9 % Sodium Chloride Flush 3 ML SYRINGE IVFLUSH ×3 (08:16→20:09)
[2024-02-26] MEDS: Docusate Sodium 100 MG CAPSULE PO ×2 (08:16→20:04)
[2024-02-26] MEDS: Insulin Lispro 100 UNIT/ML 3 ML VIAL SUBCUT ×4 (08:17→20:04)
[2024-02-26] MEDS: Nystatin Powder 15 GM BOTTLE 1 APPL TOPICAL ×2 (08:20→20:05)
--- NOTE | 2024-02-26 08:55 | P.DS_ITS ---
DS: Providers Provider Date of Service: 02/26/24 Date of admission: 02/22/24 16:19 Primary care physician: None Physician Consults: 02/22/24 16:24 Consult to General Surgery Routine Consulting Provider: [facility] [place] [facility] Reason for consultation: abscess to upper back DS: Diagnosis Discharge Diagnosis (1) Abscess: Status: Acute (2) Cellulitis: Status: Acute DS: Summary Hospital Course Hospital Course: admission hpi Chief Complaint: back abscess This is a 63-year-old male who presents to the emergency department with complaints of left back abscess. He states approximately 10 days ago he noticed a pimple which she has popped multiple times. This area has continued to grow considerably and has been actively draining for the past 2 days. It has become red and painful and today he presented to the emergency department for evaluation of this area. He reports decreased p.o. intake for the past 4 days but denies excessive thirst or associated fever or chills. On evaluation he was afebrile, lab work was significant for leukocytosis of 14.3. Inflammatory markers including ESR and CRP were significantly elevated. In addition he was noted to have hyperglycemia. He denies any previous diagnosis of diabetes. He has not seen any medical provider in at least the past 4-5 years. Lactic acid was slightly elevated at 2.1, bicarb low 19 but no evidence of DKA, no anion gap. Imaging studies partially visualized abnormality in the subcutaneous fat adjacent to the musculature in the lower neck region suggestive of inflammatory and/or infectious etiology. He received broad-spectrum antibiotics and the decision was made to admit him to the hospital for further management. While he was in the emergency department he did have a mechanical fall. He did not lose consciousness and he denies hitting his head. He denies any headache, visual disturbances or neck pain. A right hip x-ray was obtained and was negative for any fracture. He denies any pain right hip or pelvis. hospital course: The patient presented with a back abscess surrounded by cellulitis and was newly diagnosed with diabetes, evidenced by a hemoglobin A1c of 12%. The abscess was surgically opened and packed. Cultures revealed Methicillin-Sensitive Staphylococcus Aureus (MSSA). - Initially treated with IV Vancomycin for 4 days. - Switched to Cefazolin, but developed an allergic reaction (hives). - Discharged on oral Levaquin for 1 more week. - Diabetes Management - Initiated on Lantus (insulin glargine) and lispro sliding scale. - Started on Metformin 500 mg twice daily. - Blood glucose levels improved, trending down from the 300s to 182. The patient will likely need further medication adjustments by the primary care provider (PCP). Time Attestation Discharge Coordination Time (in mins): 45 Quality: Safe Use of Opioids Does Pt have an Active Cancer Diagnosis on the Problem List?: No Quality: Stroke Does the patient have a stroke diagnosis?: No Physical Exam Vital Signs: Vital Signs: Last Vital Signs Temp 97.1 F 02/26/24 07:21 Pulse 78 02/26/24 07:21 Resp 18 02/26/24 07:21 BP 159/82 H 02/26/24 07:21 Pulse Ox 97 02/26/24 07:21 O2 Del Method Room Air 02/26/24 07:21 BMI result Body Mass Index 37.8 DS: Data Data Completed and Pending Labs on day of discharge: Laboratory Results - last 24 hr 02/25/24 02/25/24 02/25/24 11:18 16:35 20:19 Creatinine Estim Creat Clear Calc Estimated GFR POC Glucose 275 H 256 H 308 H 02/26/24 02/26/24 05:42 07:19 Creatinine 0.80 Estim Creat Clear Calc 126.5 Estimated GFR > 60 POC Glucose 268 H Preliminary micro results at discharge 02/22/24 10:29 Blood Culture - Preliminary Blood - Venous No growth after 48 hours. 02/22/24 10:17 Blood Culture - Preliminary Blood - Venous No growth after 48 hours. Discharge Plan Discharge Anticipated Discharge Date/Time: 02/26/24 08:40 Patient Disposition: Home, Self-Care Discharge Diagnosis: Cellulitis and abscess of the back, new onset diabetes Referrals: [facility] [place] [facility] [Provider Group] - 1 Week Physician,Nonstaff [Physician] - 03/20/24 2:00 pm (You have a new patient appointment scheduled with Catia Brush at [address]. If you can not make this appointment please call the office at [phone].) Galdino Mata MD [Physician] - 1 Week Discharge Medications: New lisinopril 10 mg Tablet 10 mg PO DAILY Qty: 90 0RF Protocol: Hold for SBP< HOLD for SBP < : 90 insulin lispro [Admelog SoloStar U-100 Insulin] 100 unit/mL insulin pen 1 sliding scale dose subcut USEASDIRECTD MDD 40 units Qty: 15 2RF Rx Instructions: BG <111 0 units, 111-150 - 0 units, 151-200 2 units, 201-250 4 units, 251-300 6 units, 301-350 8 units, >350 10 units (DME) FreeStyle Lite Strips Strip Qty: 100 2RF Rx Instructions: Test four times a day or as directed. (DME) blood-glucose meter [FreeStyle Lite Meter] Kit Qty: 1 2RF Rx Instructions: As Directed alcohol swabs Pads, Medicated 1 pad TOPICAL QIDACHS Qty: 100 0RF Rx Instructions: Use four times a day or as directed. insulin glargine [Lantus Solostar U-100 Insulin] 100 unit/mL (3 mL) Insulin Pen 10 unit SUBCUT QAM Qty: 15 2RF (DME) pen needle, diabetic 32 gauge x 1/4 needle Qty: 100 2RF Rx Instructions: Use four times a day or as directed. (DME) lancets [FreeStyle Lancets] 28 gauge misc Qty: 100 2RF Rx Instructions: Test four times a day or as directed. metformin 500 mg Tablet 500 mg PO BIDWM Qty: 60 0RF levofloxacin 750 mg Tablet 750 mg PO Q24H Qty: 6 0RF Continued acetaminophen 500 mg Tablet 500 mg PO DAILY PRN (Reason: Pain) famotidine 20 mg Tablet 20 mg PO DAILY PRN (Reason: Acid Reflux) diphenhydramine HCl [Benadryl Allergy] 25 mg Tablet 25 mg PO BEDTIME PRN (Reason: itch/sleep) ibuprofen 200 mg Tablet 200 mg PO TIDAC Discharge Orders: Discharge Order (Routine); Ordered 02/27/24 Ordered By: Jacky Resendiz Diet: Diabetic diet Activity on Discharge: As tolerated Stand Alone Forms: Patient Portal Discharge page Print Language: Slovenian Activity Restrictions/Additional Instructions: Wet to dry saline soaked fluff to I&D site, followed by dry fluffs and tape. Change daily. Ok to shower. Care Plan Goals: healing and resolution of cellulitis abscess and wound control of diabetes, prevention of complications of diabetes Health Concerns: new onset diabetes back abscess and cellulitis Plan of Treatment: Levaquin as recommeded Wound dressing daily Take Insulin and metformin as directed to control your sugar Take Lisinopril for your blood pressure follow up with your doctor Assessment: see above Discharge Date/Time: 02/27/24 12:40
[2024-02-26] MEDS: metFORMIN HCl 500 MG TABLET PO ×2 (10:46→17:02)
[2024-02-26] MEDS: vancomycin HCL 1,250 MG in 0.9 % Sodium Chloride 250 ML 166.67 MG IV (10:46)
[2024-02-26] MEDS: Insulin Glargine,Hum.rec.anlog 100 UNIT/ML 10 ML VIAL 10 UNIT SUBCUT (10:46)
[2024-02-26 11:15] LABS: Glucose, Whole Blood 304 mg/dL (60-115)
--- NOTE | 2024-02-26 12:35 | HO.PM.IMPN ---
Subjective Subjective Date of Service: 02/26/24 Interval History: f/u on cellulitis and abscess of the back Physical Exam Vital Signs: Vital Signs: Last Vital Signs Temp 97.1 F 02/26/24 07:21 Pulse 78 02/26/24 07:21 Resp 18 02/26/24 07:21 BP 159/82 H 02/26/24 07:21 Pulse Ox 97 02/26/24 07:21 O2 Del Method Room Air 02/26/24 07:21 BMI result Body Mass Index 37.8 General: AO X 3, no acute distress Resp: CTA bilateral CVS: S1,S2,RRR GI: +BS, NT, no distention Skin: No rash, left upper back wound paking in place,surrounding erythema Neuro: motor grossly intact Psych: appropriate affect Objective Data Active Medications Acetaminophen (Acetaminophen 325 Mg Tablet) 650 mg PO Q6H PRN PRN Reason: Pain, Mild (Pain Scale 1-3), fever or headache Last Admin: 02/23/24 09:53 Dose: 650 mg Documented By: KATHERINE Docusate Sodium (Docusate Sodium 100 Mg Capsule) 100 mg PO BID [facility] Last Admin: 02/26/24 08:16 Dose: 100 mg Documented By: ASHU Glucose (Glucose Gel 15 Gm Gel..Gram.) 15 gm PO Q15M PRN; Protocol PRN Reason: per Hypoglycemia Standing Ord. Dextrose (D10) 250 mls @ 750 mls/hr IV Q15M PRN; Protocol PRN Reason: per Hypoglycemia Standing Ord. Vancomycin HCl 1,250 mg/ (Sodium Chloride) 250 mls @ 166.667 mls/hr IV Q12H [facility] Last Admin: 02/26/24 10:46 Dose: 166.67 mls/hr Documented By: ASHU Insulin Glargine (Insulin Glargine,Hum.Rec.Anlog 100 Unit/Ml 10 Ml Vial) 10 unit SUBCUT DAILY [facility] Last Admin: 02/26/24 10:46 Dose: 10 unit Documented By: ASHU Insulin Human Lispro (Insulin Lispro 100 Unit/Ml 3 Ml Vial) 0 unit SUBCUT QIDACHS [facility]; Protocol Last Admin: 02/26/24 11:35 Dose: 8 unit Documented By: ASHU Lisinopril (Lisinopril 10 Mg Tablet) 10 mg PO DAILY [facility]; Protocol Last Admin: 02/26/24 08:16 Dose: 10 mg Documented By: ASHU Melatonin (Melatonin 3 Mg Tablet) 6 mg PO BEDTIME PRN PRN Reason: Insomnia Metformin HCl (Metformin Hcl 500 Mg Tablet) 500 mg PO BIDWM [facility] Last Admin: 02/26/24 10:46 Dose: 500 mg Documented By: ASHU Morphine Sulfate (Morphine Sulfate 4 Mg/Ml Cartridge) 2 mg IVPUSH Q4H PRN; Protocol PRN Reason: Pain, Severe (Pain Scale 7-10) Nystatin (Nystatin Powder 15 Gm Bottle) 1 appl TOPICAL BID [facility]; Protocol Last Admin: 02/26/24 08:20 Dose: 1 appl Documented By: ASHU Ondansetron HCl (Ondansetron Hcl 4 Mg/2 Ml Vial) 4 mg IVPUSH Q8H PRN PRN Reason: Nausea and Vomiting Oxycodone HCl (Oxycodone Hcl Immed Release 5 Mg Tablet) 5 mg PO Q6H PRN PRN Reason: Pain, Moderate(Pain Scale 4-6) Pharmacy Consult (Consult Rx Vancomycin Dosing) 1 each MISCELLANE DAILY PRN PRN Reason: Consult order Polyethylene Glycol (Polyethylene Glycol 3350 17 Gm Powd.Pack) 17 gm PO DAILY PRN PRN Reason: Constipation Sodium Chloride (0.9 % Sodium Chloride Flush 3 Ml Syringe) 3 ml IVFLUSH QSHIFT [facility] Last Admin: 02/26/24 08:16 Dose: 3 ml Documented By: ASHU Labs 02/23/24 06:38 02/26/24 05:42 Labs: Laboratory Results - last 24 hr 02/25/24 02/25/24 02/26/24 16:35 20:19 05:42 Estim Creat Clear Calc 126.5 Estimated GFR > 60 POC Glucose 256 H 308 H 02/26/24 02/26/24 07:19 11:09 Estim Creat Clear Calc Estimated GFR POC Glucose 268 H 304 H Microbiology Microbiology Results: Microbiology 02/23/24 09:50 Gram Stain - Final Back Left Routine Culture - Final Staphylococcus aureus Assessment and Plan (1) Diabetes mellitus, new onset: Status: Acute (2) Abscess: Status: Acute (3) Cellulitis: Status: Acute Plan This is a 63-year-old male with history of hypertension, noncompliant with medication who has not seen a medical provider in the past 5 years who presents with 10 day history of increasing painful red area on his back found to have abscess and new diagnosis of diabetes Sepsis due to Abscess and cellulitis of upper back, culture MSSA -change Vanco to Cefazolin, and Keflex or Doxy at DC -surgery following s/p ID 02/22 and with packing in place New onset diabetes with hyperglycemia hemoglobin A1c 12.3 Increase Lantus to 10, add metformin Continue sliding scale of insulin Diabetic diet he prefers not to go home with insulin acute metabolic acidosis.resolved likely due to elevated lactic acid no evidence of DKA Mechanical fall Denies loss of consciousness, head strike. No neck pain CT scan of head and neck negative PT evaluation- recommends home with PT services HTN h/o HTN, stopped meds 4-5 years ago Lisinopril increased to 10 mg, if needed increase dose or add Norvasc Pseudo hyponatremia. resolved Due to hyperglycemia Normocytic anemia Above transfusion threshold Morbid obesity BMI 37.1 Weight loss encouraged dvt ppx - mechanical devices Patient requires ongoing inpatient stay for IV antibiotics, treatment of newly diagnosed diabetes and unstable blood sugar as well as surgical evaluation and probable I&D Quality Stroke Does the patient have a stroke diagnosis?: No VTE Prior VTE?: No VTE Risk Level:: Medical - moderate - high VTE Device Contraindication: N/A - Device Ordered VTE Drug Contraindication: Treatment Not Indicated
--- NOTE | 2024-02-26 13:18 | P.PNGS_ITS ---
Subjective Subjective Date of Service: 02/26/24 Interval history: Patient is feeling better each day. Minimal back wound discomfort. Undergoing local wound care Physical Exam 2 Vital Signs: Vital Signs: Last Vital Signs Temp 97.1 F 02/26/24 07:21 Pulse 78 02/26/24 07:21 Resp 18 02/26/24 07:21 BP 159/82 H 02/26/24 07:21 Pulse Ox 97 02/26/24 07:21 O2 Del Method Room Air 02/26/24 07:21 BMI result Body Mass Index 37.8 Back/Spine/Pelvis: Other: Back wound healing very well. Marked reduction in erythema and edema. Cellulitic process of the upper right back seems to be improving as well. Objective Data Active Medications Acetaminophen (Acetaminophen 325 Mg Tablet) 650 mg PO Q6H PRN PRN Reason: Pain, Mild (Pain Scale 1-3), fever or headache Last Admin: 02/23/24 09:53 Dose: 650 mg Documented By: KATHERINE Docusate Sodium (Docusate Sodium 100 Mg Capsule) 100 mg PO BID [facility] Last Admin: 02/26/24 08:16 Dose: 100 mg Documented By: ASHU Glucose (Glucose Gel 15 Gm Gel..Gram.) 15 gm PO Q15M PRN; Protocol PRN Reason: per Hypoglycemia Standing Ord. Dextrose (D10) 250 mls @ 750 mls/hr IV Q15M PRN; Protocol PRN Reason: per Hypoglycemia Standing Ord. Cefazolin Sodium/Dextrose (Ancef) 2 gm in 50 mls @ 100 mls/hr IV Q8H [facility] Insulin Glargine (Insulin Glargine,Hum.Rec.Anlog 100 Unit/Ml 10 Ml Vial) 10 unit SUBCUT DAILY [facility] Last Admin: 02/26/24 10:46 Dose: 10 unit Documented By: ASHU Insulin Human Lispro (Insulin Lispro 100 Unit/Ml 3 Ml Vial) 0 unit SUBCUT QIDACHS [facility]; Protocol Last Admin: 02/26/24 11:35 Dose: 8 unit Documented By: ASHU Lisinopril (Lisinopril 10 Mg Tablet) 10 mg PO DAILY [facility]; Protocol Last Admin: 02/26/24 08:16 Dose: 10 mg Documented By: ASHU Melatonin (Melatonin 3 Mg Tablet) 6 mg PO BEDTIME PRN PRN Reason: Insomnia Metformin HCl (Metformin Hcl 500 Mg Tablet) 500 mg PO BIDWM [facility] Last Admin: 02/26/24 10:46 Dose: 500 mg Documented By: ASHU Morphine Sulfate (Morphine Sulfate 4 Mg/Ml Cartridge) 2 mg IVPUSH Q4H PRN; Protocol PRN Reason: Pain, Severe (Pain Scale 7-10) Nystatin (Nystatin Powder 15 Gm Bottle) 1 appl TOPICAL BID [facility]; Protocol Last Admin: 02/26/24 08:20 Dose: 1 appl Documented By: ASHU Ondansetron HCl (Ondansetron Hcl 4 Mg/2 Ml Vial) 4 mg IVPUSH Q8H PRN PRN Reason: Nausea and Vomiting Oxycodone HCl (Oxycodone Hcl Immed Release 5 Mg Tablet) 5 mg PO Q6H PRN PRN Reason: Pain, Moderate(Pain Scale 4-6) Pharmacy Consult (Consult Rx Vancomycin Dosing) 1 each MISCELLANE DAILY PRN PRN Reason: Consult order Polyethylene Glycol (Polyethylene Glycol 3350 17 Gm Powd.Pack) 17 gm PO DAILY PRN PRN Reason: Constipation Sodium Chloride (0.9 % Sodium Chloride Flush 3 Ml Syringe) 3 ml IVFLUSH QSHIFT [facility] Last Admin: 02/26/24 08:16 Dose: 3 ml Documented By: ASHU Labs 02/23/24 06:38 02/26/24 05:42 Labs: Laboratory Results - last 24 hr 02/25/24 02/25/24 02/26/24 16:35 20:19 05:42 Estim Creat Clear Calc 126.5 Estimated GFR > 60 POC Glucose 256 H 308 H 02/26/24 02/26/24 07:19 11:09 Estim Creat Clear Calc Estimated GFR POC Glucose 268 H 304 H Microbiology Microbiology Results: Microbiology 02/23/24 09:50 Gram Stain - Final Back Left Routine Culture - Final Staphylococcus aureus Procedures Date of Service Date of Service: 02/26/24 Progress Note: A&P Assessment and plan (1) Back abscess: Status: Acute (2) Cellulitis and abscess of other specified site: Status: Acute Plan Continue local wound care, IV antibiotics. On discharge, follow-up with Wound Center Time Spent With Patient Time: Total time managing care of this patient today ____ minutes. Quality Stroke Does the patient have a stroke diagnosis?: No VTE Prior VTE?: No VTE Risk Level:: Medical - moderate - high VTE Device Contraindication: N/A - Device Ordered VTE Drug Contraindication: Treatment Not Indicated
[2024-02-26] MEDS: ceFAZolin Sodium/Dextrose,Iso 2 GM/50 ML PIGGYBACK IV (14:33)
[2024-02-26 15:18] LABS: Glucose, Whole Blood 219 mg/dL (60-115)
[2024-02-26] MEDS: Doxycycline Monohydrate 100 MG CAPSULE PO (18:32)
[2024-02-26 19:29] LABS: Glucose, Whole Blood 216 mg/dL (60-115)
[2024-02-26 23:22] VITALS: BP 152/80; PULSE 78; RESP 16; TEMP 36; O2SAT 95
[2024-02-27] MEDS: Doxycycline Monohydrate 100 MG CAPSULE PO (06:17)
[2024-02-27 06:58] LABS: Creatinine Clr Calc Pharmacy 121.9; Estimated Glomerular Filt Rate > 60
[2024-02-27 07:22] VITALS: BP 143/77; PULSE 81; RESP 18; TEMP 36.6; O2SAT 97
[2024-02-27 07:23] LABS: Glucose, Whole Blood 182 mg/dL (60-115)
[2024-02-27 07:59] VITALS: BP 143/77
[2024-02-27] MEDS: Insulin Glargine,Hum.rec.anlog 100 UNIT/ML 10 ML VIAL 10 UNIT SUBCUT (07:59)
[2024-02-27] MEDS: Docusate Sodium 100 MG CAPSULE PO (07:59)
[2024-02-27] MEDS: lisinopriL 10 MG TABLET PO (07:59)
[2024-02-27] MEDS: metFORMIN HCl 500 MG TABLET PO (07:59)
[2024-02-27] MEDS: Insulin Lispro 100 UNIT/ML 3 ML VIAL SUBCUT (07:59)
[2024-02-27] MEDS: 0.9 % Sodium Chloride Flush 3 ML SYRINGE IVFLUSH (08:00)
[2024-02-27 08:18] LABS: Anion Gap 14 (12-20); Carbon Dioxide 27 mmol/L (22-29); Chloride 101 mmol/L (96-108); Potassium 3.9 mmol/L (3.3-5.1); Sodium 138 mmol/L (135-145)
--- NOTE | 2024-02-27 11:14 | PM.PNGS ---
Subjective Subjective Date of Service: 02/27/24 Interval history: Feels overall better. Less pain. Physical Exam Vital Signs: Vital Signs: Last Vital Signs Temp 98 F 02/27/24 07:22 Pulse 81 02/27/24 07:22 Resp 18 02/27/24 07:22 BP 143/77 H 02/27/24 07:59 Pulse Ox 97 02/27/24 07:22 O2 Del Method Room Air 02/27/24 07:22 BMI result Body Mass Index 37.8 Const: General: comfortable, no acute distress and alert Resp: Effort & Inspection: normal respiratory effort Skin: Other: left upper back- I&D site remains open and draining, continues to have some purulent drainage but more thin then previously, surrounding erythema and edema significant improved; concerning area more inferiorly and medially improved as well, no real fluctuance to indicate abscess Objective Data Active Medications Acetaminophen (Acetaminophen 325 Mg Tablet) 650 mg PO Q6H PRN PRN Reason: Pain, Mild (Pain Scale 1-3), fever or headache Last Admin: 02/23/24 09:53 Dose: 650 mg Documented By: KATHERINE Docusate Sodium (Docusate Sodium 100 Mg Capsule) 100 mg PO BID [facility] Last Admin: 02/27/24 07:59 Dose: 100 mg Documented By: TAURSU Glucose (Glucose Gel 15 Gm Gel..Gram.) 15 gm PO Q15M PRN; Protocol PRN Reason: per Hypoglycemia Standing Ord. Dextrose (D10) 250 mls @ 750 mls/hr IV Q15M PRN; Protocol PRN Reason: per Hypoglycemia Standing Ord. Insulin Glargine (Insulin Glargine,Hum.Rec.Anlog 100 Unit/Ml 10 Ml Vial) 10 unit SUBCUT DAILY [facility] Last Admin: 02/27/24 07:59 Dose: 10 unit Documented By: TAURUS Insulin Human Lispro (Insulin Lispro 100 Unit/Ml 3 Ml Vial) 0 unit SUBCUT QIDACHS [facility]; Protocol Last Admin: 02/27/24 07:59 Dose: 2 unit Documented By: TAURUS Levofloxacin (Levofloxacin 750 Mg Tablet) 750 mg PO Q24H [facility] Lisinopril (Lisinopril 10 Mg Tablet) 10 mg PO DAILY [facility]; Protocol Last Admin: 02/27/24 07:59 Dose: 10 mg Documented By: TAURUS Melatonin (Melatonin 3 Mg Tablet) 6 mg PO BEDTIME PRN PRN Reason: Insomnia Metformin HCl (Metformin Hcl 500 Mg Tablet) 500 mg PO BIDWM [facility] Last Admin: 02/27/24 07:59 Dose: 500 mg Documented By: TAURUS Morphine Sulfate (Morphine Sulfate 4 Mg/Ml Cartridge) 2 mg IVPUSH Q4H PRN; Protocol PRN Reason: Pain, Severe (Pain Scale 7-10) Nystatin (Nystatin Powder 15 Gm Bottle) 1 appl TOPICAL BID [facility]; Protocol Last Admin: 02/26/24 20:05 Dose: 1 appl Documented By: SAMUELRISJeanne Ondansetron HCl (Ondansetron Hcl 4 Mg/2 Ml Vial) 4 mg IVPUSH Q8H PRN PRN Reason: Nausea and Vomiting Oxycodone HCl (Oxycodone Hcl Immed Release 5 Mg Tablet) 5 mg PO Q6H PRN PRN Reason: Pain, Moderate(Pain Scale 4-6) Polyethylene Glycol (Polyethylene Glycol 3350 17 Gm Powd.Pack) 17 gm PO DAILY PRN PRN Reason: Constipation Sodium Chloride (0.9 % Sodium Chloride Flush 3 Ml Syringe) [facility] Last Admin: 02/27/24 08:00 Dose: 3 ml Documented By: TAURUS Labs 02/23/24 06:38 02/27/24 05:51 Labs: Laboratory Results - last 24 hr 02/26/24 02/26/24 02/26/24 11:09 15:06 19:24 Hold Purple Top Anion Gap Estim Creat Clear Calc Estimated GFR POC Glucose 304 H 219 H 216 H 02/27/24 02/27/24 05:51 07:19 Hold Purple Top SEE NOTE Anion Gap 14 Estim Creat Clear Calc 121.9 Estimated GFR > 60 POC Glucose 182 H Microbiology Microbiology Results: Microbiology 02/23/24 09:50 Gram Stain - Final Back Left Routine Culture - Final Staphylococcus aureus Procedures Date of Service Date of Service: 02/27/24 Progress Note: A&P Assessment and plan (1) Back abscess: Status: Acute (2) Acute hyperglycemia: Status: Acute (3) Diabetes mellitus, new onset: Status: Acute Plan Cellulitis has significantly improved, no further intervention needed. Continue wet to dry packing dressing changes daily to I&D site. Stable for dc when medically cleared. F/u in office in 1 week and with wound care center. Does not want home VNA services for dressing change. Time Spent With Patient Time: Total time managing care of this patient today ____ minutes. Quality Stroke Does the patient have a stroke diagnosis?: No VTE Prior VTE?: No VTE Risk Level:: Medical - moderate - high VTE Device Contraindication: N/A - Device Ordered VTE Drug Contraindication: Treatment Not Indicated
[2024-02-27 11:17] LABS: Glucose, Whole Blood 270 mg/dL (60-115)
--- NOTE | 2024-02-27 11:21 | MHC.CM.PN ---
DP: PT HAS BEEN MEDICALLY CLEARED FOR DC HOME, NO SERVICES. WILL TRANSPORT
[2024-02-27] MEDS: levoFLOXacin 750 MG TABLET PO (11:50)
--- NOTE | 2024-02-27 11:50 | PC.NURSE ---
Patient declined lunch time insulin and lunch time meal. Patient's picking patient up at noon for discharge.
--- NOTE | 2024-03-05 10:42 | P.CDIM_ITS ---
PROVIDER RESPONSE TEXT: To clarify, the appropriate diagnosis supported by the clinical indicators: Sepsis is/was present: sepsis present on admission QUERY TEXT: PHYSICIAN'S DOCUMENTATION REQUEST Date of Query: 03/05/2024 09:59 AM EDT Patient Name: Devang Myrick Admit Date: 02/22/2024 Dear Jacky Resendiz, RETROSPECTIVE QUERY A review of the medical record indicates additional documentation may be needed. Please review below and update the documentation accordingly. Consistency of a Diagnosis: H&P 02/21 - Sepsis due to abscess and cellulitis of upper back. Continue broad spectrum antibiotics Progress notes 02/22 - 02/25 - Sepsis due to abscess and cellulitis of upper back Discharge summary 02/25 - Abscess/cellulitis Abscess was surgically opened and packed. Cultures revealed MSSA. Sepsis Systemic manifestations of infection, with 2 or more SIRS criteria which include: Fever > 100.4?F or hypothermia < 96.8?F Leukocytosis - WBC > 12,000 or leukopenia, WBC < 4,000, or > 10% bands Tachycardia- > 90 beats/minute Tachypnea- RR > 20 breaths/minute or PaCO2 < 32mmHg Sepsis is/was present possible, suspected, probable etc. After study Sepsis has been ruled out Other (explain) Clinically unable to determine (explain) Thank you, Lory Jolly, CCS, CDIS Use of terms such as suspected, likely, concern for, or probable (associated with a specific diagnosi s that is being evaluated, monitored, or treated as if it exists) are acceptable and can be coded in the inpatient se tting, when documented at the time of discharge. Please use your independent medical judgment in providing your response. THIS QUERY IS PART OF THE PERMANENT MEDICAL RECORD
== END 2024-02-27 12:40 | disposition home or self-care (01) | DRG 872 ==
LOC: HO.ED 10:50 → HO.EDOVER 16:33 → HO.S3 19:14
PROVIDERS: Physician Assistant Medical; Admitting Provider Physician Assistant Medical; Emergency Provider Emergency Medicine; Visit Provider Internal Medicine
DX: A41.9 Sepsis, unspecified organism (principal); L02.212 Cutaneous abscess of back [any part, except buttock and flank]; L03.312 Cellulitis of back [any part except buttock and flank]; E87.21 Acute metabolic acidosis; D64.9 Anemia, unspecified; B95.61 Methicillin susceptible Staphylococcus aureus infection as the cause of diseases classified elsewhere; I10 Essential (primary) hypertension; E11.65 Type 2 diabetes mellitus with hyperglycemia; E66.9 Obesity, unspecified; Z68.37 Body mass index [BMI] 37.0-37.9, adult; Z79.899 Other long term (current) drug therapy
CPT/HCPCS: 36415; 70450; 71260; 72125; 73502; 74177; 80048; 80051; 80053; 80202; 82010; 82565; 82947; 83036; 83605; 85025; 85027; 85652; 86140; 87040; 87070; 87077; 87186; 87205; 97162; 99285; J0690; J2543; J3370; J3371; J7120; Q9967

== ENCOUNTER → 2024-02-22 16:19 | Outpatient (BNV) | payer MEDICARE, SELFPAY | PROVIDERS: Admitting Provider Physician Assistant Medical; Emergency Provider Emergency Medicine; Visit Provider Physician Assistant Surgical | DX: L02.212 Cutaneous abscess of back [any part, except buttock and flank] (principal); R73.9 Hyperglycemia, unspecified; E11.9 Type 2 diabetes mellitus without complications | CPT/HCPCS: 10060; 99024; 99222 ==

== ENCOUNTER → 2024-02-22 16:19 | Outpatient (BNV) | payer MEDICARE, SELFPAY | PROVIDERS: Admitting Provider Physician Assistant Medical; Emergency Provider Emergency Medicine; Visit Provider Physician Assistant Medical | DX: E11.9 Type 2 diabetes mellitus without complications (principal); L02.91 Cutaneous abscess, unspecified; L03.90 Cellulitis, unspecified | CPT/HCPCS: 99223; 99232; 99239 ==

== ENCOUNTER 2024-03-07 08:46 | Outpatient (AMB) | payer MEDICARE, SELFPAY ==
--- NOTE | 2024-03-07 09:04 | A.OFFVIS_ITS ---
Intake Visit Reasons: s/p abscess, uncontrolled DM Intake Note: Patient referred after ER visit for abscess on Lt post shoulder. Reports site healing well. Finished Levofloxacin course. Patient c/o: no concerns. ER: 02-22-2024. Independent Beauty Consultant Required: No Accompanied by: Self / Same As Patient Allergies No Known Allergies Allergy (Verified 03/07/24 09:05) HPI Comments Details: Status post recent hospitalization for I&D of massive left upper back abscess. Patient presents for follow-up. He is undergoing local wound care at home with his . He has had no wound issues or complaints. Symptoms are markedly improved. [facility] Medical History Hypertension Family History Father Diabetes Social History Household Members: Spouse Housing: House Do you presently have visiting nurse or other home services: No Alcohol intake: current Alcohol intake frequency: holidays/special occasions only Patient Tobacco Use Status: Former Tobacco user service: No Physical Exam Back/Spine/Pelvis Other: Upper back wound has markedly decreased in size. Infective process as completely resolved. Healthy granulating tissue. Dressing applied. Assessment & Plan Assessment & Plan (1) Status post incision and drainage: Code(s): Z98.890 - Other specified postprocedural states Category: Medical Plan Patient was continue local therapy. He is also scheduled for wound clinic visit tomorrow. From my perspective he is stable and will follow-up p.r.n.. All questions answered. He also needs to follow up with his medical doctor regarding his newly diagnosed diabetes, which he says he will scheduled. Coding Level of Care Code Global (77435) Diagnoses Status post incision and drainage Z98.890
== END 2024-03-07 09:07 | disposition home or self-care (01) ==
PROVIDERS: Visit Provider Surgery
DX: Z98.890 Other specified postprocedural states (principal)
CPT/HCPCS: 99212

== ENCOUNTER → 2024-03-07 08:46 | Outpatient (BNVA) | payer MEDICARE, SELFPAY | PROVIDERS: Visit Provider Surgery | DX: Z09 Encounter for follow-up examination after completed treatment for conditions other than malignant neoplasm (principal) | CPT/HCPCS: 99212 ==